=== PATIENT | female | born 1970 | race Caucasian/White ===

== ENCOUNTER 2016-07-14 21:35 | Observation (INO) ==
[2016-07-14] MEDS ORDERED: ADENOCARD ONE (21:46)
[2016-07-14] MEDS ORDERED: NS 1,000 ML ONE (21:46)
[2016-07-14] MEDS ORDERED: ADENOCARD IV ONE (21:49)
[2016-07-14] MEDS ORDERED: CARDIZEM IV ONE (21:54)
[2016-07-14] MEDS ORDERED: LABETALOL IV ONE ×2 (21:58→23:25)
[2016-07-14] MEDS ORDERED: CARDIZEM 100 MG/NS 100 ML IV SCH (22:00)
--- NOTE | 2016-07-14 22:12 | PROVIDER DOCUMENTATION ---
HPI-Cardiac General - General Chief Complaint: Palpitations Stated Complaint: SVT Time Seen by Provider: 07/14/16 21:57 Source: patient Allergies/Adverse Reactions: Patient Allergies Allergy/AdvReac Type Severity Reaction Status Date / Time morphine AdvReac Mild ITCHING Verified 07/09/16 01:41 codeine AdvReac ITCHING Verified 07/09/16 01:41 Home Medications: Home Medication List Medication Instructions Recorded Confirmed Last Taken Type Levothyroxine [Synthroid] 50 microgm PO DAILY 09/22/15 07/09/16 07/08/16 History 50 MCG Amphetamine Salts [Adderall] 20 mg PO BID 04/26/16 07/09/16 07/08/16 History Albuterol Sulfate [Proair 2 puff IH Q4H PRN 06/11/16 07/09/16 Unknown History Respiclick] Alprazolam [Xanax] 0.5 - 1 tab PO BID 06/11/16 07/09/16 07/08/16 History Fluoxetine HCl [Prozac] 20 mg PO DAILY 06/11/16 07/09/16 07/08/16 History 20 MG Hydroxyzine Pamoate 50 mg PO Q6H PRN 06/11/16 07/09/16 Unknown History Losartan/Hydrochlorothiazide 1 each PO DAILY 06/11/16 07/09/16 07/08/16 History [Losartan-Hctz 100-25 mg Tab] 1 EACH Albuterol Sulfate Inhaler 2 puff INH Q4H PRN PRN #1 inhaler 06/23/16 07/09/16 Unknown Rx [Ventolin Hfa] Clonidine [Catapres] 0.1 mg PO TID PRN #15 tablet 06/23/16 07/09/16 Unknown Rx Levofloxacin [Levaquin] 750 mg PO DAILY #7 tablet 07/06/16 07/09/16 07/08/16 Rx 750 MG - History of Present Illness-Cardiac Nature of Presenting Problem: 45 YOWF PRESENTS TO ED WITH C/O 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 PT STATES SHE HAS HAD THIS SYMPTOMS 3 OTHER TIMES. PT STATES SHE GOT SOB WHEN SHE WAS WALKING AFTER HER EPISODE. PT STATES SHE HAS HAD TO BE CONVERTED 3 OTHER TIMES. Quality of Pain: reports: none Severity in ED: moderate Onset/Duration: 1/2 hour ago Timing: still present Context/Activities at Onset: reports: light activity Modifying Factors: improves with: nothing History of arrythmia: reports: SVT Recent use of:: reports: no stimulants Associated Symptoms: reports: shortness of breath Similar Symptoms Previously?: No Recently Seen Here or By Another Healthcare Provider: No Review of Systems - Adult - REVIEW OF SYSTEMS - ADULT Constitutional: denies: chills, fever Eyes: reports: no symptoms reported Ears, Nose, Mouth & Throat: reports: no symptoms reported Cardiovascular: reports: palpitations. denies: chest pain, syncope Respiratory: reports: shortness of breath. denies: cough, wheezing Gastrointestinal: denies: abdominal pain, diarrhea, nausea, vomiting Genitourinary: reports: no symptoms reported Musculoskeletal: denies: back pain, neck pain Integumentary: reports: no symptoms reported Neurological: denies: dizziness/vertigo, headache/migraines, syncope Psychiatric: reports: no symptoms reported Endocrine: reports: no symptoms reported Hematologic/Lymphatic: reports: no symptoms reported Allergic/Immunologic: reports: no symptoms reported All Other Systems: Reviewed and Negative Past History - Adult - PAST MEDICAL HISTORY-ADULT Review of Records: reports: Nursing Assessment Review, Medications Reviewed Cardiovascular: reports: arrhythmia, HTN Respiratory: reports: asthma Gastrointestinal: reports: GERD, ulcer Genitourinary: reports: incontinence. denies: kidney disease, kidney stones, polycystic kidney disease Neurological: reports: headaches/migraines Psychiatric: reports: anxiety, depression, other Endocrine/Immune: reports: thyroid disorder - PRIOR SURGERIES/PROCEDURES Surgical/Procedure History: reports: hysterectomy, BTL, - IMMUNIZATION STATUS Childhood Immunizations: See Nurse Assessment Flu Vaccine: See Nurse Assessment - SOCIAL HISTORY Living Situation: family Physical Exam-General - CONSTITUTIONAL General Appearance: alert, moderate distress - EYES Eyes: PERRL/EOMI, pink conjunctivae - HEAD, EARS, NOSE, MOUTH & THROAT HENMT: normocephalic/atraumatic, moist mucous membranes - NECK Neck: non-tender, full range of motion, supple - RESPIRATORY Respiratory: chest non-tender, lungs clear, normal breath sounds - CARDIOVASCULAR Cardiovascular: normal peripheral pulses, tachycardia - GASTROINTESTINAL (ABDOMEN) Abdominal Exam: normal bowel sounds, non tender, soft - LYMPHATIC Lymphatic: no adenopathy - MUSCULOSKELETAL Back Exam: normal inspection, no CVA tenderness, no vertebral tenderness Extremity: normal range of motion, non-tender - SKIN Integumentary: normal color, normal turgor, warm/dry - NEUROLOGIC Neurologic: grossly normal - PSYCHIATRIC Psych/Mental Status: oriented x 3 Progress - PLAN OF CARE/RESULTS Progress/Plan/Lab Results: Laboratory Tests 07/14/16 07/14/16 07/14/16 21:35 21:35 21:35 WBC 12.61 H RBC 4.29 Hgb 10.5 L Hct 33.6 L MCV 78.3 L MCH 24.5 L MCHC 31.3 L RDW Std Deviation 18.7 H Plt Count 465 H MPV 11.5 H Immature Gran % (Auto) 0.1 Neut % (Auto) 56.2 Lymph % (Auto) 30.0 Hill % (Auto) 7.5 Eos % (Auto) 5.8 Baso % (Auto) 0.4 Immature Gran # (Auto) 0.01 Neut # (Auto) 7.10 H Lymph # (Auto) 3.78 H Hill # (Auto) 0.94 H Eos # (Auto) 0.73 H Baso # (Auto) 0.05 PT INR APTT (Factor Assay) Sodium 138 Potassium 2.9 L Chloride 101 Carbon Dioxide 23 L Anion Gap 14 BUN 13 Creatinine 0.8 Estimated GFR/1.73 m2 > 60 BUN/Creatinine Ratio 16 Glucose 105 H Calculated Osmolality 276 Calcium 9.8 Magnesium Total Bilirubin < 0.15 L AST 22 ALT 23 Alkaline Phosphatase 80 Creatine Kinase Troponin T < 0.010 Total Protein 7.8 Albumin 4.5 Globulin 3.0 Albumin/Globulin Ratio 1.0 TSH 07/14/16 07/14/16 07/14/16 21:35 21:35 21:35 WBC RBC Hgb Hct MCV MCH MCHC RDW Std Deviation Plt Count MPV Immature Gran % (Auto) Neut % (Auto) Lymph % (Auto) Hill % (Auto) Eos % (Auto) Baso % (Auto) Immature Gran # (Auto) Neut # (Auto) Lymph # (Auto) Hill # (Auto) Eos # (Auto) Baso # (Auto) PT 13.3 INR 0.98 APTT (Factor Assay) 33.2 Sodium Potassium Chloride Carbon Dioxide Anion Gap BUN Creatinine Estimated GFR/1.73 m2 BUN/Creatinine Ratio Glucose Calculated Osmolality Calcium Magnesium 2.1 Total Bilirubin AST ALT Alkaline Phosphatase Creatine Kinase 96 Troponin T Total Protein Albumin Globulin Albumin/Globulin Ratio TSH 3.83 Orders Category Date Time Status Admit - [facility] Routine AdmDCTranf 07/14/16 22:58 Ordered Activity - Strict Bedrest ORDERED Care 07/14/16 22:58 Active Cardiac Monitoring DIRECTED Care 07/14/16 21:50 Active Oxygen Therapy- ED Nursing DIRECTED Care 07/14/16 21:49 Active Saline Loc DIRECTED Care 07/14/16 21:49 Active Saline Loc NOW Care 07/14/16 21:49 Active Vital Signs Order Q 4-HR ASSESS Care 07/14/16 22:58 Active Heart Healthy Diet Diet 07/14/16 22:59 Active CBC WITH DIFF [HEME] Stat Lab 07/14/16 21:35 Completed CK PROFILE [SP CHEM] Stat Lab 07/14/16 21:35 Completed COMPREHENSIVE METABOLIC PANEL [CHEM] Stat Lab 07/14/16 21:35 Completed MAGNESIUM [CHEM] Stat Lab 07/14/16 21:35 Completed PRO B-NATRIURETIC PEPTIDE Stat Lab 07/14/16 21:[address] Received [address]IME WITH INR PL [COAG] Stat Lab 07/14/16 21:[address] [COAG] Stat Lab 07/14/16 21:35 Completed TROPONIN T Stat Lab 07/14/16 21:35 Completed TSH Stat Lab 07/14/16 21:35 Completed 0.9% Sodium Chloride Inj [Ns] 1,000 ml Med 07/14/16 21:46 Discontinued .ROUTE As Directed Adenosine [Adenocard] Med 07/14/16 21:46 Discontinued 18 mg .ROUTE .STK-MED ONE Adenosine [Adenocard] Med 07/14/16 21:49 Discontinued 6 mg IV NOW ONE Diltiazem 100 mg/Ns [Cardizem 100 mg/Ns] 100 ml Med 07/14/16 22:00 Discontinued IV 10 mg/hr Diltiazem [Cardizem] Med 07/14/16 21:54 Discontinued 10 mg IV NOW ONE Labetalol Med 07/14/16 21:58 Discontinued 10 mg IV NOW ONE Potassium Chloride E.r. [Klor-Con] Med 07/14/16 22:53 Discontinued 40 meq PO NOW ONE Oxygen Device Routine Oth 07/14/16 22:58 Active EKG [EKG] Stat Ther 07/14/16 21:50 Ordered Vital Signs - 24 hr 07/14/16 07/14/16 07/14/16 21:41 21:53 22:10 Temperature 98 F Pulse Rate 204 H 106 H 81 Respiratory 28 H 19 20 Rate Blood Pressure 159/121 203/131 175/112 O2 Sat by Pulse 97 100 Oximetry 07/14/16 22:57 Temperature Pulse Rate 85 Respiratory Rate Blood Pressure 161/104 O2 Sat by Pulse 100 Oximetry - EKG 1 Time of EKG reading by physician:: 21:45 EKG Read and Signed by:: Antony Fiore EKG Interpretation (*Must complete 3 of following elements*): Abnormal Rate: 207 Rhythm: WIDE QRS TACHYCARDIA [place]: normal Comments: NONSPECIFIC INTRAVENTRICULAR BLOCK 2 Time of EKG reading by physician:: 21:46 EKG Read and Signed by:: Antony Fiore EKG Interpretation (*Must complete 3 of following elements*): Abnormal Rate: 89 Rhythm: SINUS RHYTHM W/MARKED SINUS ARRHYTHMIA [place]: normal QRS: normal Comments: POSSIBLE LT ATRIAL ENLARGEMENT. NONSPECIFIC ST AND T WAVE ABNORMALITY 3 Time of EKG reading by physician:: 21:47 EKG Read and Signed by:: Antony Fiore Rate: 116 Rhythm: SINUS TACHYCARDIA Comments: MARKED ST ABNORMALITY Departure - Departure Time of Disposition Order: 22:58 DIAGNOSIS: Paroxysmal SVT (supraventricular tachycardia), Uncontrolled hypertension Disposition: ADMITTED INPATIENT 09 Certified Medical Emergency: Emergent Condition: Stable Additional Instructions: ED Follow Up Instructions: You have been treated by a care provider in the Emergency Department. These instructions are being provided to you so you can have an understanding of how to care for yourself upon discharge. Upon discharge from the Emergency Department, you are responsible for making arrangements for follow-up care by a physician of your choice. Take all prescribed medications as directed. Return to the Emergency Department immediately for any new or worsening symptoms. You may call the Physician Referral phone number at [phone] to obtain a list of Physicians who are taking new patients. Referrals: Sheng Shi MD [Primary Care Provider] - Attestation - Scribe Verification/Attestation Scribe:: Kermit Villarreal Acting as Scribe for:: Antony Fiore Scribestella documention review:: This chart was documented by a scribe and accurately reflects the service the provider performed and the decisions made by the provider.
[2016-07-14 22:24] LABS: MANUAL DIFF NEEDED? NO
[2016-07-14 22:28] LABS: BASO% 0.4 % (0.0-0.8); EOS# 0.73 X1000 (0.0-0.7); EOS% 5.8 % (0.0-10.0); HEMATOCRIT 33.6 % (37.0-47.0); HEMOGLOBIN 10.5 g/dL (12.0-16.0); IMM GRAN# 0.01 X1000 (0.0-0.04); IMM GRAN% 0.1 % (0.0-0.5); LYMPH# 3.78 X1000 (1.2-3.4); MCH 24.5 PG (27-31); MCHC 31.3 g/dL (33-37); MCV 78.3 FL (81-99); MONO# 0.94 X1000 (0.11-0.59); MONO% 7.5 % (1.7-9.3); MPV 11.5 FL (7.4-10.4); NEUT% 56.2 % (42.2-75.2); PLT 465 X1000 (130-400); RBC 4.29 XMIL (4.2-5.4)
[2016-07-14 22:42] LABS: INR 0.98 (0.86-1.15); PROTIME 13.3 Seconds (12.1-15.5)
[2016-07-14 22:43] LABS: PTT PL 33.2 Seconds (22.6-43.9)
[2016-07-14 22:45] LABS: MAGNESIUM 2.1 mg/dL (1.5-2.7)
[2016-07-14 22:50] LABS: AGAP 14; ALBUMIN 4.5 g/dL (3.5-5.0); ALKALINE PHOSPHATASE 80 U/L (32-104); BUN 13 mg/dL (8-22); CALCIUM 9.8 mg/dL (8.8-10.2); CHLORIDE 101 mmol/L (98-107); COSMO 276; GOT 22 U/L (10-30); GPT 23 U/L (10-36); POTASSIUM 2.9 mmol/L (3.5-5.1); SODIUM 138 mmol/L (136-145); TCO2 23 mmol/L (25-35); TOTAL BILIRUBIN < 0.15 mg/dL (0.20-1.00); TOTAL PROTEIN 7.8 g/dL (6.3-8.3)
[2016-07-14] MEDS ORDERED: KLOR-CON PO ONE (22:53)
[2016-07-14] MEDS ORDERED: LABETALOL ONE (23:26)
[2016-07-14] MEDS ORDERED: CATAPRES PO PRN (23:52)
[2016-07-15] MEDS ORDERED: HYDROXYZINE PO PRN (00:36)
[2016-07-15] MEDS ORDERED: MILK OF MAGNESIA PO ONE (00:45)
[2016-07-15] MEDS: XANAX PO PRN ×2 (00:57→21:45)
--- NOTE | 2016-07-15 05:55 | EKG Report ---
Test Performed on : 07/14/2016 9:46:04 PM Test Reason : SDA Blood Pressure : / mmHG Vent. Rate : 116 BPM Atrial Rate : 116 BPM P-R Int : 156 ms QRS Dur : 088 ms QT Int : 316 ms P-R-T Axes : 063 064 041 degrees QTc Int : 439 ms Sinus tachycardia. Marked ST abnormality, possible inferior subendocardial injury Abnormal ECG When compared with ECG of 14-JUL-2016 21:45, (Unconfirmed) No significant change was found Unconfirmed Result
[2016-07-15] MEDS ORDERED: ADDERALL PO SCH (07:00)
[2016-07-15 07:12] LABS: HEMATOCRIT 31.4 % (37.0-47.0); HEMOGLOBIN 9.7 g/dL (12.0-16.0); MCH 24.1 PG (27-31); MCHC 30.9 g/dL (33-37); MCV 78.1 FL (81-99); MPV 10.9 FL (7.4-10.4); RBC 4.02 XMIL (4.2-5.4)
[2016-07-15] MEDS ORDERED: CATAPRES PO PRN ×2 (07:35→07:36)
[2016-07-15 07:38] LABS: AGAP 11; ALBUMIN 3.9 g/dL (3.5-5.0); ALKALINE PHOSPHATASE 67 U/L (32-104); BUN 9 mg/dL (8-22); CALCIUM 8.9 mg/dL (8.8-10.2); CHLORIDE 104 mmol/L (98-107); COSMO 276; GOT 15 U/L (10-30); GPT 18 U/L (10-36); MAGNESIUM 2.1 mg/dL (1.5-2.7); SODIUM 139 mmol/L (136-145); TCO2 23 mmol/L (25-35); TOTAL PROTEIN 6.7 g/dL (6.3-8.3)
[2016-07-15] MEDS ORDERED: KLOR-CON PO ONE (08:29)
--- NOTE | 2016-07-15 08:49 | HISTORY AND PHYSICAL ---
SUBJECTIVE: Tachycardia. HISTORY PRESENT ILLNESS: Patient is a 45-year-old female, who notes that she has been having issues with palpitations and tachycardia off and on for the last several months. It usually resolves very quickly; this time it did not. Therefore, she came to the ER. Notes that she was at work. She had not been overly stressed, anxious, had not been doing any physical activity. States her heart started racing and did not slow down. Therefore, she came to the emergency department. ALLERGIES: Morphine causing itching. Codeine causing itching. MEDICATIONS: Synthroid 50 mcg daily, albuterol although notes she has not taken any albuterol recently, Xanax 0.5 mg b.i.d., Prozac 20 mg once a day, hydroxyzine 50 q. 6 hours p.r.n., losartan 100/25, Catapres 0.5 t.i.d. REVIEW OF SYSTEMS: As noted above. Positive palpitations. Denies any current chest pain. Denies any fevers, chills, nausea, vomiting, dysuria, frequency. Denies hesitancy, constipation, melena. Denies hematochezia. Denies any skin rashes, weight loss or weight gain. PAST MEDICAL HISTORY: Chronic reflux, ADD, chronic migraines, depression, hypothyroidism, history of hysterectomy,BTL, history of hypertension and asthma. FAMILY HISTORY: Noncontributory. SOCIAL HISTORY: Patient lives at home. She denies drinking alcohol. She is a former smoker, but does not smoke. Denies any other illicit substances. OBJECTIVE: Vital Signs Reviewed: Temperature 97.0 degrees, pulse 67, respiratory rate 18, BP 180/91. General: Patient is well developed, well nourished. She is currently in no respiratory distress. She is awake, alert, oriented. Neck: Supple. CV: Regular rate. Chest: Relatively clear. Abdomen: Soft. Extremities: Moves all extremities. Neurologic: No changes. LABS: CBC and CMP reviewed. Potassium at 3.0. TSH 3.83. ASSESSMENT: 1. Supraventricular tachycardia, appears resolved after 1 dose of intravenous Cardizem in the emergency room. 2. Hypertension. Blood pressure is elevated, although she has not had her medications yet this morning. 3. Hypothyroidism. 4. Chronic depression. 5. Hypokalemia. PLAN: We will continue patient's home medications. We will add Toprol for her SVT. Will replace her potassium and hopefully home later this afternoon. She will have an echo before discharge and will follow up in 1 week.
[2016-07-15] MEDS: TOPROL XL PO SCH (09:46)
[2016-07-15] MEDS: COZAAR PO SCH (09:46)
[2016-07-15] MEDS: PROZAC PO SCH (09:46)
[2016-07-15] MEDS: SYNTHROID PO SCH (09:46)
[2016-07-15] MEDS: HYDROCHLOROTHIAZIDE PO SCH (09:47)
--- NOTE | 2016-07-15 17:06 | ECHO REPORT ---
ORDER DATE: 07/15/2016 INTERPRETING PHYSICIAN: Dr. Smith CLINICAL INDICATIONS: [id number]-old female, supraventricular tachycardia , chest pain. M-MODE MEASUREMENTS: Right ventricle: 1.8 cm. Left ventricle end diastole: 4.1 cm. Left ventricle end systole: 2.7 cm. Posterior wall: 1.5 cm. Interventricular septum: 1.5 cm. Left atrium: 4.3 cm. Aortic root: 3.3 cm. SUMMARY OF 2-DIMENSIONAL IMAGING: Left ventricular function is normal. Ejection fraction appears to be in the range of 55 to 60%. LV Chamber is mildly enlarged. There is moderate degree of concentric LVH. Right ventricle is normal. Left atrium appears to be mild to moderately enlarged. Mitral valve shows mild degree of regurgitation. Pulse wave Doppler of mitral inflow is normal. Tissue Doppler of septal and lateral mitral anulus averages 9 cm. Pulse wave Doppler of pulmonary venous flow is normal. There is no diastolic dysfunction. Tricuspid valve shows mild degree of regurgitation. Inferior vena cava is at the upper limits of normal. Pulmonary pressure estimated to be somewhere in the range of 48 to 53 mmHg. Pulmonic valve looks normal. Color flow mapping unremarkable. Aortic valve looks normal. Color flow mapping unremarkable. There is no pericardial effusion, masses, nor thrombus. Clinical correlation is recommended. [facility]
[2016-07-16] MEDS: SYNTHROID PO SCH (06:10)
[2016-07-16] MEDS ORDERED: KLOR-CON PO SCH (09:00)
[2016-07-16] MEDS: TOPROL XL PO SCH (09:30)
[2016-07-16] MEDS: HYDROCHLOROTHIAZIDE PO SCH (09:30)
[2016-07-16] MEDS: COZAAR PO SCH (09:30)
[2016-07-16] MEDS: PROZAC PO SCH (09:30)
[2016-07-16 11:41] VITALS: BP 173/91
--- NOTE | 2016-07-16 14:05 | DISCHARGE SUMMARY ---
ADMISSION DATE: 07/14/2016 DISCHARGE DATE: 07/16/2016 DISCHARGE DIAGNOSES: 1. Supraventricular tachycardia resolved. 2. Hypertension stable. 3. Hypothyroidism. 4. Chronic depression. 5. Adult attention-deficit. 6. Hypokalemia. CONSULTATIONS: None. PROCEDURES: None. BRIEF HOSPITAL COURSE: The patient is a 45-year-old female, who presented to the emergency department as noted on the HPI and treated in the usual fashion. She had an elevated heart rate in the 150s. It quickly resolved down to the 60s. Likely this was a combination of stress, medications, etc. She notes that all of her symptoms have resolved. She is feeling better. She is asking to go home. Of note, her blood pressure was elevated in the hospital right before discharge but this was secondary to her having missed her medications the day before and had not yet received them in the hospital. However she is awake and alert, she is oriented, she is in no distress. She will follow up in the office in 1-2 weeks. 35 minutes was spent in discharge planning.
== END 2016-07-16 13:15 | disposition home or self-care (01) ==
LOC: P.ED 21:35 → P.MEDSURG 21:36
PROVIDERS: ADMIT Family Medicine; ATTEND Family Medicine
DX: I47.1 Supraventricular tachycardia (principal); R00.2 Palpitations; R06.02 Shortness of breath; I10 Essential (primary) hypertension; J45.909 Unspecified asthma, uncomplicated; K21.9 Gastro-esophageal reflux disease without esophagitis; Z87.11 Personal history of peptic ulcer disease; F41.9 Anxiety disorder, unspecified; F32.9 Major depressive disorder, single episode, unspecified; Z79.899 Other long term (current) drug therapy; E03.9 Hypothyroidism, unspecified; E87.6 Hypokalemia; F98.8 Other specified behavioral and emotional disorders with onset usually occurring in childhood and adolescence
CPT/HCPCS: 80053; 82550; 83735; 83880; 84443; 84484; 85025; 85027; 85610; 85730; 93005; 93306; 94761; 96374; 96375; 96376; J0153; J7030

== ENCOUNTER 2016-08-03 16:43 | Emergency (ER) ==
[2016-08-03 17:39] LABS: MANUAL DIFF NEEDED? NO
[2016-08-03 17:43] LABS: BASO% 0.4 % (0.0-0.8); EOS# 0.39 X1000 (0.0-0.7); EOS% 5.4 % (0.0-10.0); HEMOGLOBIN 10.1 g/dL (12.0-16.0); LYMPH# 1.67 X1000 (1.2-3.4); MCH 24.3 PG (27-31); MCHC 31.6 g/dL (33-37); MCV 76.9 FL (81-99); MONO% 6.9 % (1.7-9.3); MPV 11.1 FL (7.4-10.4); NEUT% 64.3 % (42.2-75.2); PLT 367 X1000 (130-400); RBC 4.16 XMIL (4.2-5.4)
--- NOTE | 2016-08-03 17:53 | ED EKG INTERP ---
EKG Interpretation - EKG Time of EKG reading by physician:: 17:13 EKG Read and Signed by:: Quirino Henderson EKG Interpretation (*Must complete 3 of following elements*): Abnormal Rate: 75 Rhythm: normal sinus rhythm Comments: nonspecific ST and T wave abnormality; prolonged QT Attestation - Scribe Verification/Attestation Scribe:: Argelia Tran Acting as Scribe for:: Quirino Henderson Scribe documention review:: This chart was documented by a scribe and accurately reflects the service the provider performed and the decisions made by the provider.
[2016-08-03 17:58] LABS: INR 1.04; PROTIME 10.6 Seconds (9.2-11.7); PTT 25.1 Seconds (22.0-36.0)
[2016-08-03 18:00] LABS: AGAP 13; ALBUMIN 3.9 g/dL (3.5-5.0); ALKALINE PHOSPHATASE 71 U/L (32-104); BUN 13 mg/dL (8-22); CALCIUM 9.3 mg/dL (8.8-10.2); CHLORIDE 105 mmol/L (98-107); CK PROFILE 59 U/L (24-173); COSMO 279; GOT 19 U/L (10-30); GPT 21 U/L (10-36); POTASSIUM 3.7 mmol/L (3.5-5.1); SODIUM 140 mmol/L (136-145); TCO2 22 mmol/L (25-35); TOTAL BILIRUBIN 0.24 mg/dL (0.20-1.00); TOTAL PROTEIN 7.4 g/dL (6.3-8.3)
--- NOTE | 2016-08-03 18:37 | PROVIDER DOCUMENTATION ---
HPI-General Adult - General Chief Complaint: Palpitations Stated Complaint: PALPITATIONS Time Seen by Provider: 08/03/16 18:33 Source: patient Allergies/Adverse Reactions: Patient Allergies Allergy/AdvReac Type Severity Reaction Status Date / Time morphine AdvReac Mild ITCHING Verified 07/09/16 01:41 codeine AdvReac ITCHING Verified 07/09/16 01:41 Home Medications: Home Medication List Medication Instructions Recorded Confirmed Last Taken Type Levothyroxine [Synthroid] 50 microgm PO DAILY 09/22/15 07/15/16 07/08/16 History 50 MCG Albuterol Sulfate [Proair 2 puff IH Q4H PRN 06/11/16 07/15/16 Unknown History Respiclick] Alprazolam [Xanax] 1 tab PO QHS PRN 06/11/16 07/15/16 07/08/16 History Fluoxetine HCl [Prozac] 20 mg PO DAILY 06/11/16 07/15/16 07/08/16 History 20 MG Hydroxyzine Pamoate 50 mg PO Q6H PRN 06/11/16 07/15/16 Unknown History Losartan/Hydrochlorothiazide 1 each PO DAILY 06/11/16 07/15/16 07/08/16 History [Losartan-Hctz 100-25 mg Tab] 1 EACH Albuterol Sulfate Inhaler 2 puff INH Q4H PRN PRN #1 inhaler 06/23/16 07/15/16 Unknown Rx [Ventolin Hfa] Clonidine [Catapres] 0.1 mg PO TID PRN #15 tablet 06/23/16 07/15/16 Unknown Rx Metoprolol Succinate E.r. [Toprol 25 mg PO DAILY #30 tablet 07/15/16 Unknown Rx Xl] Potassium Chloride E.r. [Klor-Con] 20 meq PO DAILY #30 tablet 07/15/16 Unknown Rx Clonidine [Catapres] 0.1 mg PO Q4H PRN PRN #0 tablet 07/16/16 Unknown Rx Azithromycin [Zithromax Z-Harrison] 250 mg PO DIRECTED #1 pkg 08/03/16 Unknown Rx - History of Present Illness -Gen Adult Nature of Presenting Problems: Pt. is 45 yof that presents with c/o a feeling of fluttering in her chest and states she has a feeling of doom. Pt. denies any N/V or SOB, or radiation of symptoms to any arm, neck or other location. Pt. reports symptoms began on Monday and she didn't come to the ED because she thought it would go away. Pt. reports she had a normal heart cath in [place] [address] Chance. Location of Pain/Injury: reports: chest (Fluttering but no pain). denies: head , face, mouth, neck, upper extremity, hand(s), abdomen, back, pelvis, genitalia , lower extremity, feet, upper body, lower body, generalized, other Pain Radiation: reports: no radiation Quality of Pain: reports: other (Fluttering). denies: aching, burning, cramping , dull, fullness, indigestion, pressure, sharp, stabbing, tearing, throbbing, tightness Severity: reports: mild. denies: moderate, severe Onset/Duration: reports: abrupt, 2 days ago Timing: reports: still present. denies: improving, gone now, resolved prior to arrival, intermittent, constant, changing over time, getting worse Context/Activities at Onset: reports: none. denies: recent emotional stress, recent physical stress, recent trauma history, possible bad food, cold exposure , out of country travel Modifying Factors: improves with: nothing Associated Symptoms: reports: anxiety, other (Fluttering sensation). denies: arm pain, back/neck pain, chest pain, constipation, cough, diaphoresis, diarrhea , dizziness, EENT symptoms, fatigue, fever/chills, genitourinary problems, headaches, heartburn, joint pain, loss of appetite, malaise, muscle aches, sinus congestion/drainage, nausea, rash, seizure, shortness of breath, sensory/ motor loss, pain with inspiration, swelling/mass in abdomen, syncope, vomiting, weakness, trouble walking Similar Symptoms Previously?: Yes Recently seen or treated by another doctor?: No Review of Systems - Adult - REVIEW OF SYSTEMS - ADULT Constitutional: reports: see HPI. denies: chills, fever, fatique Eyes: reports: see HPI. denies: discharge, blurred vision, double vision Ears, Nose, Mouth & Throat: reports: see HPI. denies: ear discharge, ear pain, hearing loss, sinus problem, nose pain, loose teeth, mouth/dental pain, throat pain, throat swelling Cardiovascular: reports: see HPI, palpitations. denies: edema, irregular heart rate, orthopnea, syncope Respiratory: reports: see HPI. denies: chronic cough, cough, dyspnea on exertion, pleurisy, shortness of breath, wheezing Gastrointestinal: reports: see HPI. denies: abdominal pain, hematemesis, diarrhea, nausea, vomiting Genitourinary: reports: see HPI. denies: dysuria, discharge, hematuria, hesitency, urgency Musculoskeletal: reports: see HPI. denies: bone pain, back pain, joint pain, muscle aches, neck pain Integumentary: reports: see HPI. denies: hives, itching, rash, skin thickening Neurological: reports: see HPI. denies: ataxia, headache/migraines, numbness, paresthesia, seizure, tremors Psychiatric: reports: see HPI, anxiety. denies: depression, emotional problems , insomnia, panic attacks, suicidal thoughts Past History - Adult - PAST MEDICAL HISTORY-ADULT Review of Records: reports: Old Records Reviewed, Nursing Assessment Review, Medications Reviewed, Social history reviewed & non-contributory. Cardiovascular: reports: arrhythmia, HTN Respiratory: reports: asthma Gastrointestinal: reports: GERD, ulcer Genitourinary: reports: incontinence. denies: kidney disease, kidney stones, polycystic kidney disease Neurological: reports: headaches/migraines Psychiatric: reports: anxiety, depression, other Endocrine/Immune: reports: thyroid disorder - PRIOR SURGERIES/PROCEDURES Surgical/Procedure History: reports: hysterectomy, BTL, - IMMUNIZATION STATUS Childhood Immunizations: See Nurse Assessment Flu Vaccine: See Nurse Assessment - SOCIAL HISTORY Smoking: denies Physical Exam-General - PHYSICAL EXAM-ADULT Initial Vital Signs Reviewed: Yes - CONSTITUTIONAL General Appearance: alert, no apparent distress, obese. negative: thin, anxious , lethargic, slow to respond, obtunded, combative - EYES Eyes: PERRL/EOMI, pink conjunctivae. negative: conjuctival exudate, scleral icterus, subconjunctival hemorrhage - HEAD, EARS, NOSE, MOUTH & THROAT HENMT: normocephalic/atraumatic, moist mucous membranes. negative: angioedema, frontal tenderness, maxillary tenderness - NECK Neck: non-tender, full range of motion, supple, normal inspection. negative: lymphadenopathy, trachial deviation, thyromegaly - RESPIRATORY Respiratory: lungs clear, normal breath sounds. negative: crackles, rales, rhonchi, stridor, wheezing - CARDIOVASCULAR Cardiovascular: normal peripheral pulses, regular rate, rhythm, no edema, no JVD , no murmur. negative: extra beats, friction rub, irregularly irregular - CHEST (BREASTS) Chest/Breast: deferred - GASTROINTESTINAL (ABDOMEN) Abdominal Exam: normal bowel sounds, non tender, soft. negative: distended, guarding, rigid, rebound, tenderness, hernia, mass - GENITOURINARY Female Genitalia/Pelvic Exam: deferred Rectal Exam: deferred Hemoccult Exam: deferred - LYMPHATIC Lymphatic: no adenopathy. negative: axilla node tender, cervical node tenderness - MUSCULOSKELETAL Back Exam: normal inspection, no CVA tenderness, no vertebral tenderness. negative: ecchymosis, swelling, vertebral tenderness Extremity: normal range of motion, non-tender, normal gait, normal inspection. negative: deformity, erythema, inflammation, swelling, tenderness Peripheral Pulses: radial (R): 2+, radial (L): 2+ - SKIN Integumentary: normal color, normal turgor, warm/dry. negative: cyanosis, diaphoresis, ecchymosis, erythema, jaundice, mottled, pallor, petechiae, purpura , rash, swelling, tenderness - NEUROLOGIC Neurologic: grossly normal, no motor/sensory deficits. negative: aphasia, facial droop, focal weakness, motor weakness, sensory deficit - PSYCHIATRIC Psych/Mental Status: normal mood/affect, normal thought content, normal thought process, oriented x 3, anxious. negative: paranoid, tearful Progress - PLAN OF CARE/RESULTS Progress/Plan/Lab Results: Discussed results and plan of care with patient. Patient agrees with plan and verbalizes understanding. Vital Signs Temp Pulse Resp BP Pulse Ox 08/03/16 16:58 97.6 F 94 H 18 223/117 99 morphine Adverse Reaction (Mild, Verified 07/09/16 01:41) ITCHING codeine Adverse Reaction (Verified 07/09/16 01:41) ITCHING Levothyroxine [Synthroid] 50 microgm PO DAILY 09/22/15 Albuterol Sulfate [Proair Respiclick] 2 puff IH Q4H PRN 06/11/16 Alprazolam [Xanax] 1 tab PO QHS PRN 06/11/16 Fluoxetine HCl [Prozac] 20 mg PO DAILY 06/11/16 Hydroxyzine Pamoate 50 mg PO Q6H PRN 06/11/16 Losartan/Hydrochlorothiazide [Losartan-Hctz 100-25 mg Tab] 1 each PO DAILY 06/11 Albuterol Sulfate Inhaler [Ventolin Hfa] 2 puff INH Q4H PRN PRN #1 inhaler 06/23 Clonidine [Catapres] 0.1 mg PO TID PRN #15 tablet 06/23/16 Metoprolol Succinate E.r. [Toprol Xl] 25 mg PO DAILY #30 tablet 07/15/16 Potassium Chloride E.r. [Klor-Con] 20 meq PO DAILY #30 tablet 07/15/16 Clonidine [Catapres] 0.1 mg PO Q4H PRN PRN #0 tablet 07/16/16 Laboratory 08/03/16 08/03/16 08/03/16 20:19 20:19 17:21 WBC RBC Hgb Hct MCV MCH MCHC RDW Std Deviation Plt Count MPV Immature Gran % (Auto) Neut % (Auto) Lymph % (Auto) [place] % (Auto) Eos % (Auto) Baso % (Auto) Immature Gran # (Auto) Neut # (Auto) Lymph # (Auto) [place] # (Auto) Eos # (Auto) Baso # (Auto) PT INR PTT (Actin FS) D-Dimer Sodium Potassium Chloride Carbon Dioxide Anion Gap BUN Creatinine Estimated GFR/1.73 m2 BUN/Creatinine Ratio Glucose Calculated Osmolality Calcium Magnesium Total Bilirubin AST ALT Alkaline Phosphatase Creatine Kinase 57 Troponin T < 0.010 < 0.010 Jut-S-Jdnpgsjmwws Pept Total Protein Albumin Globulin Albumin/Globulin Ratio 08/03/16 08/03/16 08/03/16 17:21 17:21 17:21 WBC RBC Hgb Hct MCV MCH MCHC RDW Std Deviation Plt Count MPV Immature Gran % (Auto) Neut % (Auto) Lymph % (Auto) [place] % (Auto) Eos % (Auto) Baso % (Auto) Immature Gran # (Auto) Neut # (Auto) Lymph # (Auto) [place] # (Auto) Eos # (Auto) Baso # (Auto) PT 10.6 INR 1.04 PTT (Actin FS) 25.1 D-Dimer 0.11 Sodium Potassium Chloride Carbon Dioxide Anion Gap BUN Creatinine Estimated GFR/1.73 m2 BUN/Creatinine Ratio Glucose Calculated Osmolality Calcium Magnesium Total Bilirubin AST ALT Alkaline Phosphatase Creatine Kinase Troponin T Zru-A-Vpqzhchsljc Pept 129 Total Protein Albumin Globulin Albumin/Globulin Ratio 08/03/16 08/03/16 17:21 17:21 WBC 7.26 RBC 4.16 L Hgb 10.1 L Hct 32.0 L MCV 76.9 L MCH 24.3 L MCHC 31.6 L RDW Std Deviation 17.1 H Plt Count 367 MPV 11.1 H Immature Gran % (Auto) 0.0 Neut % (Auto) 64.3 Lymph % (Auto) 23.0 [place] % (Auto) 6.9 Eos % (Auto) 5.4 Baso % (Auto) 0.4 Immature Gran # (Auto) 0.00 Neut # (Auto) 4.67 Lymph # (Auto) 1.67 [place] # (Auto) 0.50 Eos # (Auto) 0.39 Baso # (Auto) 0.03 PT INR PTT (Actin FS) D-Dimer Sodium 140 Potassium 3.7 Chloride 105 Carbon Dioxide 22 L Anion Gap 13 BUN 13 Creatinine 0.8 Estimated GFR/1.73 m2 > 60 BUN/Creatinine Ratio 16 Glucose 98 Calculated Osmolality 279 Calcium 9.3 Magnesium 2.0 Total Bilirubin 0.24 AST 19 ALT 21 Alkaline Phosphatase 71 Creatine Kinase 59 Troponin T Rdb-F-Uqufsmkvkvs Pept Total Protein 7.4 Albumin 3.9 Globulin 3.5 Albumin/Globulin Ratio 1.1 Orders Category Date Time Status Cardiac Monitoring DIRECTED Care 08/03/16 17:24 Active Saline Loc NOW Care 08/03/16 17:24 Active CHEST-2 VIEWS [RAD] Stat Exams 08/03/16 17:24 Taken CBC WITH ELECTRONIC DIFF [HEME] Stat Lab 08/03/16 17:21 Completed CK PROFILE [SP CHEM] Stat Lab 08/03/16 17:21 Completed CK PROFILE [SP CHEM] Stat Lab 08/03/16 20:19 Completed COMPREHENSIVE METABOLIC PANEL [CHEM] Stat Lab 08/03/16 17:21 Completed D-DIMER [CHEM] Stat Lab 08/03/16 17:21 Completed MAGNESIUM [CHEM] Stat Lab 08/03/16 17:21 Completed PRO B-NATRIURETIC PEPTIDE Stat Lab 08/03/16 17:21 Completed PROTIME WITH INR [COAG] Stat Lab 08/03/16 17:21 Completed PTT [COAG] Stat Lab 08/03/16 17:21 Completed TROPONIN T Stat Lab 08/03/16 17:21 Completed TROPONIN T Stat Lab 08/03/16 20:19 Completed Azithromycin [Zithromax] Med 08/03/16 18:53 Discontinued 500 mg PO NOW ONE Clonidine [Catapres] Med 08/03/16 18:53 Discontinued 0.1 mg PO NOW ONE Lorazepam [Ativan] Med 08/03/16 20:30 Discontinued 2 mg IM NOW ONE EKG [EKG] Stat Ther 08/03/16 17:02 Ordered EKG [EKG] Stat Ther 08/03/16 19:29 Ordered Laboratory Tests 08/03/16 08/03/16 08/03/16 17:21 17:21 17:21 WBC 7.26 RBC 4.16 L Hgb 10.1 L Hct 32.0 L MCV 76.9 L MCH 24.3 L MCHC 31.6 L RDW Std Deviation 17.1 H Plt Count 367 MPV 11.1 H Immature Gran % (Auto) 0.0 Neut % (Auto) 64.3 Lymph % (Auto) 23.0 [place] % (Auto) 6.9 Eos % (Auto) 5.4 Baso % (Auto) 0.4 Immature Gran # (Auto) 0.00 Neut # (Auto) 4.67 Lymph # (Auto) 1.67 [place] # (Auto) 0.50 Eos # (Auto) 0.39 Baso # (Auto) 0.03 PT INR PTT (Actin FS) D-Dimer 0.11 Sodium 140 Potassium 3.7 Chloride 105 Carbon Dioxide 22 L Anion Gap 13 BUN 13 Creatinine 0.8 Estimated GFR/1.73 m2 > 60 BUN/Creatinine Ratio 16 Glucose 98 Calculated Osmolality 279 Calcium 9.3 Magnesium 2.0 Total Bilirubin 0.24 AST 19 ALT 21 Alkaline Phosphatase 71 Creatine Kinase 59 Troponin T Tkj-N-Hzpgytaodgc Pept Total Protein 7.4 Albumin 3.9 Globulin 3.5 Albumin/Globulin Ratio 1.1 08/03/16 08/03/16 08/03/16 17:21 17:21 17:21 WBC RBC Hgb Hct MCV MCH MCHC RDW Std Deviation Plt Count MPV Immature Gran % (Auto) Neut % (Auto) Lymph % (Auto) [place] % (Auto) Eos % (Auto) Baso % (Auto) Immature Gran # (Auto) Neut # (Auto) Lymph # (Auto) [place] # (Auto) Eos # (Auto) Baso # (Auto) PT 10.6 INR 1.04 PTT (Actin FS) 25.1 D-Dimer Sodium Potassium Chloride Carbon Dioxide Anion Gap BUN Creatinine Estimated GFR/1.73 m2 BUN/Creatinine Ratio Glucose Calculated Osmolality Calcium Magnesium Total Bilirubin AST ALT Alkaline Phosphatase Creatine Kinase Troponin T < 0.010 Odx-N-Ypyiyaqwviw Pept 129 Total Protein Albumin Globulin Albumin/Globulin Ratio 08/03/16 08/03/16 20:19 20:19 WBC RBC Hgb Hct MCV MCH MCHC RDW Std Deviation Plt Count MPV Immature Gran % (Auto) Neut % (Auto) Lymph % (Auto) [place] % (Auto) Eos % (Auto) Baso % (Auto) Immature Gran # (Auto) Neut # (Auto) Lymph # (Auto) [place] # (Auto) Eos # (Auto) Baso # (Auto) PT INR PTT (Actin FS) D-Dimer Sodium Potassium Chloride Carbon Dioxide Anion Gap BUN Creatinine Estimated GFR/1.73 m2 BUN/Creatinine Ratio Glucose Calculated Osmolality Calcium Magnesium Total Bilirubin AST ALT Alkaline Phosphatase Creatine Kinase 57 Troponin T < 0.010 Coq-F-Gdgoxvqzkkw Pept Total Protein Albumin Globulin Albumin/Globulin Ratio - XRAY 1 XRAY Study: Chest XRAY Interpretation: RLL infiltrate (Edgar) Departure - Departure Time of Disposition Order: 21:05 DIAGNOSIS: Anxiety, Palpitations Pneumonia Qualifiers: Pneumonia type: due to unspecified organism Laterality: right Lung location: lower lobe of lung Qualified Code(s): J18.1 - Lobar pneumonia, unspecified organism Disposition: HOME 01 Certified Medical Emergency: Emergent Condition: Stable Additional Instructions: Follow up with primary care physician Take medications as directed Return to ED for any concerns or worsening of symptoms ED Follow Up Instructions: You have been treated by a care provider in the Emergency Department. These instructions are being provided to you so you can have an understanding of how to care for yourself upon discharge. Upon discharge from the Emergency Department, you are responsible for making arrangements for follow-up care by a physician of your choice. Take all prescribed medications as directed. Return to the Emergency Department immediately for any new or worsening symptoms. You may call the Physician Referral phone number at [phone] to obtain a list of Physicians who are taking new patients. Prescriptions: Azithromycin [Zithromax Z-Harrison] 250 mg PO DIRECTED #1 pkg Referrals: Sheng Shi MD [Primary Care Provider] - Attestation - Physician/ ILDA Attestation Patient care was provided by Advanced Practice Provider:: Yes Advanced Practice Provider:: Morena Pink Advanced Practice Provider documentation review:: The Mid-level provider documentation, treatment plan and medical decision making was reviewed by the physician who agrees with all treatment and medical decision making by the MLP.
[2016-08-03] MEDS ORDERED: ZITHROMAX PO ONE (18:53)
[2016-08-03] MEDS ORDERED: CATAPRES PO ONE (18:53)
[2016-08-03] MEDS ORDERED: ATIVAN IM ONE (20:30)
[2016-08-03] MEDS ORDERED: APRESOLINE IV ONE (21:10)
--- NOTE | 2016-08-03 21:22 | ED EKG INTERP ---
EKG Interpretation - EKG Time of EKG reading by physician:: 20:12 EKG Read and Signed by:: Lior Hernández EKG Interpretation (*Must complete 3 of following elements*): Abnormal Rate: 58 Rhythm: Sinus Omari Comments: nonspecific T wave abnormality Attestation - Scribe Verification/Attestation Scribe:: Harsha Navarro Acting as Scribe for:: Lior Hernández Scribe documention review:: This chart was documented by a scribe and accurately reflects the service the provider performed and the decisions made by the provider.
[2016-08-03 22:14] VITALS: BP 151/102
--- NOTE | 2016-08-04 08:07 | Diag Imaging Result Document ---
PROCEDURE NAME: CHEST-2 VIEWS - 08/03/2016 PA AND LATERAL RADIOGRAPH OF THE CHEST: COMPARISON: 06/17/2016. FINDINGS: The lungs are grossly clear. There is no discrete pleural fluid collection or evidence of pneumothorax. The cardiomediastinal silhouette and upper airway are grossly unremarkable. IMPRESSION: No evidence of acute chest pathology.
--- NOTE | 2016-08-04 10:17 | EKG Report ---
Test Performed on : 08/03/2016 5:13:28 PM Test Reason : PALPITATIONS Blood Pressure : / mmHG Vent. Rate : 075 BPM Atrial Rate : 075 BPM P-R Int : 140 ms QRS Dur : 088 ms QT Int : 414 ms P-R-T Axes : 036 049 024 degrees QTc Int : 462 ms Normal sinus rhythm. Nonspecific ST and T wave abnormality Prolonged QT Abnormal ECG When compared with ECG of 14-JUL-2016 21:46, Vent. rate has decreased BY [address] no longer depressed in Inferior leads T wave inversion now evident in Inferior leads Unconfirmed Result
--- NOTE | 2016-08-04 10:20 | EKG Report ---
Test Performed on : 08/03/2016 8:12:20 PM Test Reason : repeat Blood Pressure : / mmHG Vent. Rate : 058 BPM Atrial Rate : 058 BPM P-R Int : 144 ms QRS Dur : 092 ms QT Int : 468 ms P-R-T Axes : 047 048 066 degrees QTc Int : 459 ms Sinus bradycardia. Nonspecific T wave abnormality Abnormal ECG When compared with ECG of 03-AUG-2016 17:13, (Unconfirmed) Nonspecific T wave abnormality has replaced inverted T waves in Inferior leads Unconfirmed Result
== END 2016-08-03 22:15 | disposition home or self-care (01) ==
LOC: ED 16:43
DX: J18.1 Lobar pneumonia, unspecified organism (principal); R00.2 Palpitations; F41.9 Anxiety disorder, unspecified; I10 Essential (primary) hypertension; K21.9 Gastro-esophageal reflux disease without esophagitis; R51 Headache; E07.9 Disorder of thyroid, unspecified; F32.9 Major depressive disorder, single episode, unspecified; E66.9 Obesity, unspecified; R94.31 Abnormal electrocardiogram [ECG] [EKG]; Z79.899 Other long term (current) drug therapy
CPT/HCPCS: 71020; 80053; 82550; 83735; 83880; 84484; 85025; 85379; 85610; 85730; 93005; J0360; J2060

== ENCOUNTER 2018-08-13 11:29 | Observation (INO) ==
[2018-08-13] MEDS ORDERED: DILAUDID IV ONE (15:56)
[2018-08-13] MEDS ORDERED: PHENERGAN IM ONE (15:57)
[2018-08-13 16:48] LABS: BASO# 0.03 X1000 (0.0-0.2); BASO% 0.2 % (0.0-0.8); HEMATOCRIT 39.4 % (37.0-47.0); HEMOGLOBIN 12.8 g/dL (12.0-16.0); IMM GRAN# 0.06 X1000 (0.0-0.04); IMM GRAN% 0.3 % (0.0-0.5); LYMPH# 1.46 X1000 (1.2-3.4); LYMPH% 7.8 % (20.5-51.1); MCH 27.8 PG (27-31); MCHC 32.5 g/dL (33-37); MCV 85.5 FL (81-99); MONO# 0.36 X1000 (0.11-0.59); MONO% 1.9 % (1.7-9.3); MPV 10.8 FL (7.4-10.4); NEUT# 16.81 X1000 (1.4-6.5); NEUT% 89.8 % (42.2-75.2); PLT 375 X1000 (130-400); RBC 4.61 XMIL (4.2-5.4); RDW 16.2 % (11.5-14.5); WBC 18.72 X1000 (4.8-10.8)
[2018-08-13 16:54] LABS: AGAP 18; ALB/GLOB RATIO 1.4; ALBUMIN 4.8 g/dL (3.5-5.0); ALKALINE PHOSPHATASE 77 U/L (32-104); BUN 10 mg/dL (8-22); CHLORIDE 97 mmol/L (98-107); COSMO 275; CREATININE 0.7 mg/dL (0.5-0.9); ESTIMATED GFR > 60; GLUCOSE 132 mg/dL (70-104); GOT 28 U/L (10-30); GPT 34 U/L (10-36); LIPASE 22 U/L (13-60); POTASSIUM 4.5 mmol/L (3.5-5.1); SODIUM 137 mmol/L (136-145); TCO2 22 mmol/L (25-35); TOTAL BILIRUBIN 0.34 mg/dL (0.20-1.00); TOTAL PROTEIN 8.3 g/dL (6.3-8.3)
--- NOTE | 2018-08-13 18:05 | Diag Imaging Result Doc PS360 ---
EXAM: CT ABD/PELVIS W/IV CONT ONLY HISTORY: epigastric tender, WBC 18K TECHNIQUE: CT abdomen and pelvis with intravenous contrast COMPARISON: 02/09/2018 FINDINGS: The gallbladder has been removed. There is fatty infiltration of the liver. There is a small hiatal hernia. Normal spleen, pancreas, adrenal glands, and kidneys. Normal aorta. No bowel obstruction. There is stool throughout the colon. Normal appendix. No abscess. No ascites. The urinary bladder is distended and is normal. There is a 3.9 cm right ovarian cyst. There are several small left ovarian cysts. The largest is elongated measuring 2.0 cm in greatest diameter. The uterus has been removed. IMPRESSION: 1.Moderate sized right ovarian cyst 2.Fatty infiltration of the liver 3.Cholecystectomy 4.Small hiatal hernia 5.Hysterectomy 6.Mild constipation This exam was performed using automated exposure control, adjustment of mA or kV according to patient size, and/or use of iterative reconstruction technique. Electronically signed by Rhys Taylor 08/13/2018 6:02 PM
[2018-08-13] MEDS ORDERED: PROTONIX IV ONE (18:18)
[2018-08-13] MEDS ORDERED: G.I. COCKTAIL PO ONE (18:18)
[2018-08-13] MEDS ORDERED: SODIUM CHLORIDE 0.9% INJ ONE ×2 (18:18)
[2018-08-13] MEDS ORDERED: PEPCID IV ONE (18:18)
[2018-08-13] MEDS ORDERED: LOPRESSOR IV ONE (18:47)
[2018-08-13] MEDS ORDERED: TYLENOL PO PRN (20:29)
[2018-08-13] MEDS ORDERED: SODIUM CHLORIDE 0.9% INJ SCH (20:30)
[2018-08-13 21:31] LABS: URINE SOURCE CLEAN CATCH
[2018-08-13 21:39] LABS: BILIRUBIN URINE NEGATIVE (NEGATIVE); BLOOD URINE NEGATIVE (NEGATIVE); COLOR YELLOW; GLUCOSE URINE NEGATIVE (NEGATIVE); KETONE URINE TRACE mg/dL (NEGATIVE); LEUKOCYTES URINE NEGATIVE (NEGATIVE); NITRITE URINE NEGATIVE (NEGATIVE); PH URINE 7.5; PROTEIN URINE 200 mg/dL (NEGATIVE); SP GRAVITY URINE > 1.050; TURBIDITY URINE CLEAR (CLEAR); UROBILINOGEN URINE NORMAL (NORMAL)
[2018-08-13 21:40] LABS: UR EPITHELIAL CELLS <10 /HPF (<10); URINE BACTERIA NEGATIVE /HPF; URINE RBC <10 /HPF (<10); URINE WBC <10 /HPF (<10)
[2018-08-13] MEDS: PHENERGAN IV PRN (21:42)
[2018-08-13] MEDS: NS 1,000 ML IV SCH (21:45)
--- NOTE | 2018-08-13 21:51 | ED EKG INTERP ---
This chart was entered by Harsha Navarro Scribe, acting as scribe for Jaison Monique MD. EKG Interpretation - EKG Time of EKG reading by physician:: 20:14 EKG Read and Signed by:: Jaison Monique EKG Interpretation (*Must complete 3 of following elements*): Abnormal Rate: 71 Rhythm: NSR Comments: possible left atrial enlargement Attestation - Physician/ ILDA Attestation Patient care was provided by Advanced Practice Provider:: No The physician spent face to face time with patient:: Yes Advanced Practice Provider documentation review:: Supervising physician onsite and consulted in the evaluation and care of this patient. The physician did have a face to face encounter with the patient. This chart was documented by the indicated scribe, (Harsha Navarro Scribe) and accurately reflects the services I performed and decisions made by me, Jaison Monique MD, as attested by the provider's signature.
[2018-08-13] MEDS: DILAUDID IV PRN (21:54)
[2018-08-13 21:58] LABS: UR AMPHETAMINES QUAL NONE DETECTED (NONE DETECT); UR BARBITUATES QUAL NONE DETECTED (NONE DETECT); UR BENZODIAZEPIN QUAL PRESUMPTIVE POSITIVE (NONE DETECT); UR CANNABINOIDS QUAL NONE DETECTED (NONE DETECT); UR COCAINE QUAL NONE DETECTED (NONE DETECT); UR METHADONE QUAL NONE DETECTED (NONE DETECT); UR OPIATES QUAL NONE DETECTED (NONE DETECT); UR OXYCODONE QUAL NONE DETECTED (NONE DETECT); UR PCP QUAL NONE DETECTED (NONE DETECT)
[2018-08-14] MEDS: PHENERGAN IV PRN ×4 (04:07→23:13)
[2018-08-14] MEDS: DILAUDID IV PRN ×3 (04:07→17:37)
[2018-08-14] MEDS: PROTONIX IV SCH ×2 (05:28→17:37)
[2018-08-14 06:55] LABS: BASO# 0.02 X1000 (0.0-0.2); BASO% 0.1 % (0.0-0.8); EOS# 0.05 X1000 (0.0-0.7); EOS% 0.4 % (0.0-10.0); HEMATOCRIT 36.4 % (37.0-47.0); HEMOGLOBIN 11.7 g/dL (12.0-16.0); IMM GRAN# 0.03 X1000 (0.0-0.04); IMM GRAN% 0.2 % (0.0-0.5); LYMPH# 2.73 X1000 (1.2-3.4); MCH 27.7 PG (27-31); MCHC 32.1 g/dL (33-37); MCV 86.3 FL (81-99); MONO# 0.83 X1000 (0.11-0.59); MONO% 6.1 % (1.7-9.3); MPV 10.9 FL (7.4-10.4); NEUT% 73.2 % (42.2-75.2); PLT 356 X1000 (130-400); RBC 4.22 XMIL (4.2-5.4); RDW 16.4 % (11.5-14.5); WBC 13.66 X1000 (4.8-10.8)
[2018-08-14 07:18] LABS: CALCIUM 9.1 mg/dL (8.8-10.2); POTASSIUM 3.6 mmol/L (3.5-5.1)
--- NOTE | 2018-08-14 07:29 | EKG Report ---
Test Performed on : 08/13/2018 9:38:36 PM Test Reason : cp Blood Pressure : / mmHG Vent. Rate : 090 BPM Atrial Rate : 090 BPM P-R Int : 136 ms QRS Dur : 092 ms QT Int : 396 ms P-R-T Axes : 034 050 019 degrees QTc Int : 484 ms Normal sinus rhythm. Minimal voltage criteria for LVH, may be normal variant Nonspecific ST abnormality Prolonged QT Abnormal ECG When compared with ECG of 31-JUL-2017 14:45, Nonspecific T wave abnormality now evident in Inferior leads QT has lengthened Unconfirmed Result
--- NOTE | 2018-08-14 09:00 | HISTORY AND PHYSICAL ---
PRIMARY CARE PROVIDER: Dr. Sheng Shi. CHIEF COMPLAINT: Abdominal pain with nausea and vomiting. HISTORY OF PRESENT ILLNESS: Ms. Ludwig is a 47-year-old, female, who presented to the ER this afternoon for her second visit today complaining of periumbilical abdominal pain for which she states is constant and crampy in nature. The patient states that her abdominal pain has been unrelenting, and that the only thing that helps it is the pain medicine that she has received in the ER. Along with these symptoms, she has been having nausea and vomiting as well, and states that she is not really able to keep anything down at this time. The patient reports she does have a history of gastric ulcers. She also states that she did recently eat at a restaurant called [employer] on , approximately 4 days ago, and has been having abdominal pain, nausea and vomiting since, although she states her son ate with her, and he ate the same food she did, and he is not sick. She denies any diarrhea. The patient states she feels like she has had a fever, though she has not checked it. She is denying any dizziness, lightheadedness, although she is reporting a headache at this time. She denies any shortness of breath or chest pain. She denies any dysuria or urinary frequency. She denies any pain, numbness, tingling or swelling in extremities. Upon evaluation in the ER, she was noted to have leukocytosis with a white blood cell count of 18,720. Her chemistries were pretty unremarkable. Urinalysis did show protein and ketones, though was negative for any signs of infection. Though given her symptoms, I did perform a CT abdomen and pelvis with IV contrast, which showed a moderate right side ovarian cyst, fatty infiltration of the liver, cholecystectomy or a small hiatal hernia, hysterectomy and mild constipation. At this time, the patient will be admitted for further treatment and evaluation for intractable abdominal pain, nausea and vomiting. PAST MEDICAL HISTORY: 1. Chronic pelvic pain. The patient states that this has subsided since she has had her abdominal hysterectomy. 2. Hypertension. 3. Anxiety. 4. Depression. 5. Hypothyroidism. 6. Asthma. 7. Heart ablation for SVT. 8. ADD. 9. History of gastric ulcers. PAST SURGICAL HISTORY: 1. section x2. 2. Cholecystectomy. 3. Heart ablation for SVT. 4. Tubal ligation. 5. Abdominal hysterectomy with bilateral salpingectomy. SOCIAL HISTORY: The patient is a former smoker. She quit smoking at age 41, approximately 6 years ago, although she did smoke a half pack a day for a period of ten years. She denies any alcohol or illicit drug use. She denies any [id number] use of NSAIDs. 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 FAMILY HISTORY: Positive for her father passing away from heart failure. He was a reported heroin abuser. She reports her mom from Alzheimer disease. ALLERGIES: Patient reports allergies to morphine, Zofran, horses, pollen and cats. HOME MEDICATIONS: We are awaiting the patient's home medication list to be updated and verified. Once this is done, we will dress her home medicines. DIAGNOSTIC DATA/LABORATORY RESULTS: White blood cell count is 18,720, hemoglobin 12.8, hematocrit 39.4, platelet count is 375. Sodium 137, potassium 4.5, chloride 97, serum bicarbonate 22. BUN 10, creatinine 0.7. GFR greater than 60. Glucose 132, calcium 10. Liver function tests within normal limits. Troponin is less than 0.01. Lipase 22. TSH is 1.27. Urinalysis was obtained via clean catch, was positive for protein and ketones, was negative for glucose, blood, nitrites, leukocytes, white blood cells or bacteria. Urine drug screen was positive for opiates and benzodiazepines. From what I understand, the patient does take Xanax for anxiety, as well as Adderall for ADD. EKG showed normal sinus rhythm with a prolonged QT at a rate of 90 with a QTc of 484. CT abdomen and pelvis with IV contrast showed: 1. Moderate size right ovarian cyst. 2. Fatty infiltration of the liver. 3. Cholecystectomy. 4. A small hiatal hernia. 5. Hysterectomy. 6. Mild constipation. PHYSICAL EXAMINATION: VITAL SIGNS: Temperature 97.9 degrees, heart rate 90, respirations 20, blood pressure is 155/100. Oxygen saturation is 97% on room air. Previously in the ER, the patient's blood pressure was elevated although, upon my examination, the patient was experiencing a lot of pain. She was very restless and was unable to sit still. Though since being given pain medication and the blood pressure being taken with the patient is resting quietly, her blood pressure has improved and is only very slightly elevated at this time. HEENT: Head is atraumatic, normocephalic. Pupils are equal, round, reactive to light, were 3 mm bilaterally and brisk. Oral mucosa is slightly dry. Oropharynx is clear. NECK: Supple. Trachea midline. CARDIOVASCULAR: Patient has normal S1, S2. No murmurs, gallops, rubs appreciated with a regular rate and rhythm. PULMONARY: Patient has symmetrical chest expansion bilaterally. Lung sounds are clear to auscultation in bilateral full bryan. ABDOMEN: Soft. Nondistended. The patient was tender upon palpation in the periumbilical area. Bowel sounds were hypoactive. EXTREMITIES: No cyanosis, clubbing or edema noted. Pulse, motor, and sensory were intact in all extremities. Radial pulses and pedal pulses were 2+ bilaterally. INTEGUMENTARY: The patient's skin is pink, warm, and dry. NEUROLOGICAL: The patient is alert and oriented to person, place, time, and situation. She is able to move all extremities. There were no focal neurological deficits noted. ASSESSMENT AND PLAN: 1. Intractable abdominal pain. The patient is complaining of constant abdominal pain that is in the periumbilical area that she describes as crampy in nature. She does have a history of having gastric ulcers in the past. She did have some only mild constipation noted on her CT abdomen and pelvis. She is having nausea and vomiting with this as well. Given the symptoms, we have placed the patient on a clear liquid diet at this time. We will provide some gentle fluid hydration with normal saline. We will do Protonix 40 mg IV q. 12 hours. We have also given her Phenergan for nausea. The patient does have an allergy to Zofran. We will provide pain medication, Dilaudid. The patient states that pain medicine at this time the only thing that helps improve her pain. We have placed a consult with Dr. Perez with Gastroenterology; we will await their evaluation and further recommendations for management. 2. Nausea and vomiting. We will continue treatment as mentioned above for #1. 3. Leukocytosis. This could be reactive. The patient at this time does not have any known source of infection. Urinalysis was negative for any source of infection. CT abdomen and pelvis did not show any infectious process. She has not had reported cough, shortness of breath, and lung sounds are clear to auscultation in bilateral full bryan though blood cultures were obtained in the ER. We will repeat a CBC in the morning. We will continue to follow along and rule out any other source of infection. 4. Mild fluid volume depletion. We will continue normal saline at 85 mL per hour. 5. Hypertension. We are awaiting the patient's home medication list to be reconciled, though once done so we can continue these medications. The patient's blood pressure was elevated upon her arrival to the ED, though she was upon my examination in quite a bit of pain and was very restless, unable to sit still. Since being given pain medicine, the patient's blood pressure was taken while she was resting and has improved markedly with the last reading of 155/100. 6. Hypothyroidism. We are awaiting her home medication list to be reconciled. We will continue her medications for this. 7. Deep vein thrombosis prophylaxis will be provided with sequential compression devices. The patient has been placed on the medical floor with telemetry. She will have vital signs q. 4 hours. We will do strict intake and output. She will be on a clear liquid diet. We will repeat a CBC, BMP in the morning. Further orders and recommendations pending hospital course, diagnostic studies, and physician evaluation. Dictated by KVNG Wies for Fidencio Thapa MD cc: Fidencio Thapa MD
[2018-08-14] MEDS ORDERED: XANAX PO PRN (14:15)
[2018-08-14] MEDS ORDERED: DESYREL PO PRN (14:15)
[2018-08-14] MEDS ORDERED: CATAPRES PO PRN (14:15)
[2018-08-14] MEDS ORDERED: VENTOLIN HFA INH PRN (14:15)
[2018-08-14] MEDS: NS 1,000 ML IV SCH (14:42)
--- NOTE | 2018-08-14 17:28 | PROGRESS NOTE ---
DATE: 08/14/2018 SUBJECTIVE: Ms. Ludwig was admitted last night/early this morning. She is a patient of Dr. Hernandes. Came in with abdominal pain, nausea, vomiting. A 47-year-old who presented to the ER second visit complaining of periumbilical abdominal pain for which constant and crampy in nature. The patient states the abdominal pain has been unrelenting. Only thing that helps is pain medicine she receives in the ER. Along with these symptoms, she has been having nausea and vomiting as well. States that she was not really able to keep anything down. The patient reports she does have history of gastric ulcers. She also states she recently ate at a restaurant called [employer] on , approximately 4 days ago, and has been having abdominal pain, nausea, vomiting since. States that her son ate with her, ate same food she did and he did not get sick. Denies any diarrhea. Feels like she has had fever, though it is more subjective; she has not checked it. Denies any dizziness, lightheadedness, although she is reporting headaches. The main thing was headaches and the nausea. In the ER, she did have some leukocytosis, white blood cell count was 18,000. Chemistries pretty unremarkable. PAST MEDICAL HISTORY: 1. Chronic pelvic pain pay. She said this has subsided since she had her abdominal hysterectomy. 2. Hypertension. 3. Anxiety. 4. Depression. 5. Hypothyroidism. 6. Asthma. 7. Heart ablation for SVT. 8. Attention deficit disorder. 9. History of gastric ulcers. PAST SURGICAL HISTORY: 1. section. 2. Cholecystectomy. 3. Heart ablation. 4. Tubal ligation. 5. Abdominal hysterectomy and bilateral salpingectomy. ASSESSMENT AND PLAN: 1. So, admitted with intractable abdominal pain, complaining of constant abdominal pain, periumbilical area. She did have only mild constipation noted on CT of the abdomen and pelvis and the nausea and vomiting. We have given her Phenergan for nausea. The patient says she has an allergy for Zofran. They were giving her some Dilaudid for pain. Dr. Perez of GI is scheduled see. 2. Nausea and vomiting. This may all be a viral gastroenteritis. 3. Leukocytosis. I do not see any sign of bacterial infection. This very well could be just demargination from the nausea and cortisol induced leukocytosis. 4. Mild fluid volume depletion. They did give her some normal saline. 5. Hypertension. She continued her home medications. 6. Hypothyroidism. Continue her thyroid medication. LABORATORY DATA: White count down to 13,660, hematocrit 36, platelet count 356,000. Sodium 140, potassium 3.6, chloride 101, BUN 21, creatinine 1.0. TSH was 1.27. REVIEW OF HER ORDERS: She is getting Dilaudid 1 mg q.3 h. p.r.n., albuterol sulfate inhaler 2 puffs q.4-6 h., Xanax 0.5 mg b.i.d., amphetamine salts 20 mg b.i.d., Catapres 0.1 mg b.i.d. p.r.n., hydrochlorothiazide 25 mg every day, Synthroid 50 mcg daily, Cozaar 100 mg daily, metoprolol 25 mg b.i.d., normal saline at 85 mL an hour, Protonix 40 mg IV q.12 h., Desyrel 50 mg at bedtime p.r.n., Pepcid she got 1 dose this morning. Continue present measures. GI, Dr. Perez is consulted. I suspect she may have had a little viral gastroenteritis. I do not see any evidence to support food poisoning. cc: Joesph Franklin MD
[2018-08-14] MEDS ORDERED: PROTONIX IV SCH (18:00)
--- NOTE | 2018-08-14 18:03 | GASTROENTEROLOGY CONSULTATION ---
DATE: 08/14/2018 REASON FOR CONSULTATION: Intractable nausea and vomiting and abdominal pain. HISTORY OF PRESENT ILLNESS: Ms. Margaret Ludwig is a 47-year-old woman with past medical history of hypertension, hypothyroidism, SVT status post ablation, depression, ADHD, asthma, and remote history of peptic ulcer disease who presents with 45 days of intractable nausea, vomiting, and periumbilical pain. The patient describes being in usual state health until last when she developed multiple episodes of nonbloody, nonbilious emesis with retching. She also describes having associated severe periumbilical spasm that is [*]. She says that her symptoms are similar to when she had her partial hysterectomy last year as well as when she was hospitalized here about 8 or 9 years ago for peptic ulcer disease. At that time, she had a diagnostic EGD by Dr. Weiss that revealed Helicobacter pylori negative peptic ulcers. She has not had similar symptoms in the past. She does take ibuprofen rarely about once a week, although the day or 2 prior to her symptom onset she did take ibuprofen as well as Tylenol migraine which contains aspirin and caffeine. No change in bowel habits. No melena, diarrhea, hematochezia, hematemesis, abnormal weight loss. She does say that her brother had a partial gastrectomy secondary to complications from gastric ulcers. FAMILY HISTORY: No family history of GI malignancies. She is not on any blood thinners. REVIEW OF SYSTEMS: As per HPI, otherwise 12 point review of systems negative. PAST MEDICAL HISTORY: As per HPI. PAST SURGICAL HISTORY: She has had a partial hysterectomy, cholecystectomy, cardiac ablation, section x2, tubal ligation. SOCIAL HISTORY: She is a former smoker. No alcohol or drug use. Family history, brother has a history of peptic ulcer disease. No GI malignancies. ALLERGIES: Morphine, Zofran, horses, pollen, and cats. HOME MEDICATIONS: Include levothyroxine, Prozac, Hyzaar, Adderall, Xanax, albuterol, trazodone, clonidine, promethazine. PHYSICAL EXAMINATION: Vital Signs: Temperature 98.5 degrees, heart rate 78, respiratory rate 20, blood pressure 127/70, O2 saturation 98% on room air. General: Patient is a well-nourished, well- appearing woman in no acute distress. HEENT: Sclerae anicteric. Moist mucous membrane. Extraocular motor intact. Neck: No JVD. No lymphadenopathy. Cardiac: Regular rate and rhythm. No murmurs. Lungs: Clear to auscultation bilaterally. No wheezing or crackles. Abdomen: Obese. Nondistended. Bowel sounds present. Mild tenderness to palpation in the periumbilical area. No rebound or guarding. No ascites. Extremities: No clubbing, cyanosis, edema. Neurologic: Nonfocal. LABORATORY DATA: White count 13.66 from 18.7 on admission, hemoglobin 11.7, platelets of 356,000. Sodium 140, potassium 3.6, chloride 101, bicarb 25, BUN 21, creatinine of 1.0. LFTs are within normal limits. Lactate of 3.6, TSH 1.27. UA shows proteinuria. Urine toxicology positive for benzodiazepines. Imaging shows moderate size right ovarian cyst. Fatty infiltration of the liver status post cholecystectomy. small hiatal hernia status post hysterectomy. Mild constipation. Blood cultures x2 are pending. ASSESSMENT: Ms. Margaret Ludwig is a 47-year-old woman with [*] history of peptic ulcer disease, who presents with intractable nausea and periumbilical pain. Labs on admission show leukocytosis, now improving with IV fluids. Lactic acidosis. Exam currently is benign. Her pain is controlled with antiemetics and pain medications. She is on PPI IV twice a day. She is afraid to eat given the concern of recurrent nausea and vomiting. Differential includes esophagitis, gastritis, peptic ulcer disease. No evidence of pancreatitis. Lipase is normal. She does have an ovarian cyst. No significant findings on CT. PLAN: 1. N.p.o. after midnight for diagnostic EGD tomorrow. We will continue PPI. Clear liquid diet as tolerated. Antiemetics as per primary team. Leukocytosis is improving without antibiotics. Continue IV fluids. We will continue to monitor for signs of infection. Lactate is elevated. Vital signs are stable. No signs of sepsis on exam. She appears to be clinically improving. 2. Fatty liver, LFTs are within normal limits. No evidence of cirrhosis on exam. Thank you for this consult. We will follow with you. Please call with any questions or concerns.
[2018-08-14] MEDS: LOPRESSOR PO SCH (21:17)
[2018-08-14] MEDS: ADDERALL PO SCH (23:30)
[2018-08-15] MEDS: PROTONIX IV SCH (06:33)
[2018-08-15] MEDS ORDERED: SYNTHROID PO SCH (07:00)
[2018-08-15] MEDS ORDERED: XYLOCAINE-MPF 2% ONE (08:37)
[2018-08-15] MEDS ORDERED: DIPRIVAN 1% ONE (08:37)
[2018-08-15] MEDS ORDERED: PROZAC PO SCH (09:00)
[2018-08-15] MEDS ORDERED: HYDROCHLOROTHIAZIDE PO SCH (09:00)
[2018-08-15] MEDS ORDERED: COZAAR PO SCH (09:00)
--- NOTE | 2018-08-15 09:39 | OPERATIVE NOTE ---
PROCEDURE DATE: 08/15/2018 PROCEDURE: Upper GI endoscopy. PROVIDER: Donald Israel INDICATIONS: Nausea, vomiting, abdominal pain. MEDICATIONS: Monitored anesthesia care. DESCRIPTION OF PROCEDURE: Prior to procedure, a history and physical was performed. The patient medication allergies were reviewed. The patient's tolerance to previous anesthesia was also reviewed. The risks and benefits of procedure and sedation options, risks were discussed with the patient. All questions were answered. Informed consent was obtained. After reviewing the risks and benefits, the patient was deemed in satisfactory condition to undergo the procedure. The endoscope was passed under direct visualization. Throughout the procedure, the patient's blood pressure pulse and oxygen saturations were monitored continuously. The endoscope was introduced through the mouth and advanced to the second part of the duodenum. The upper GI endoscopy was accomplished without difficulty. The patient tolerated the procedure well. COMPLICATIONS: No immediate complications. ESTIMATED BLOOD LOSS: Minimal. FINDINGS: There was LA grade B reflux esophagitis, small hiatal hernia, striped gastritis in the antrum with erosions. Random biopsies were obtained with cold biopsy forceps to rule out H- pylori. The bulb and second portion duodenum were normal. Retroflexion in the stomach showed hiatal hernia as above. IMPRESSION: 1. LA grade B esophagitis 2. Small hiatal hernia. 3. Gastritis with erosions, biopsied. 4. Normal duodenum. RECOMMENDATIONS: Advance diet as tolerated. Transition IV PPI to p.o. twice daily. Await biopsy results. We will follow with you. Please call with any questions or concerns.
[2018-08-15] MEDS: PHENERGAN IV PRN (09:50)
[2018-08-15] MEDS: LOPRESSOR PO SCH (09:51)
[2018-08-15] MEDS: ADDERALL PO SCH (09:59)
[2018-08-15 15:38] VITALS: BP 131/1
--- NOTE | 2018-08-15 16:34 | DISCHARGE SUMMARY ---
ADMISSION DATE: 08/13/2018 DISCHARGE DATE: 08/15/2018 She is a patient of Dr. Sheng Shi. HISTORY: This 47-year-old female came to the emergency room complaining of periumbilical abdominal pain. She states is constant, crampy in nature. She states the abdominal pain had been unrelenting. Only thing that helped is the pain medication she received in the emergency room. Along with these symptoms she has been having nausea and vomiting as well. She states she has not been able to keep anything down. She does have a history of gastric ulcers. States that recently went to a restaurant called [employer] on which is approximately 4 days before this admission and afterwards had some abdominal pain, nausea, and vomiting. Her son who ate the same food did not seem to have any symptoms. She denied dizziness or lightheadedness, but did have a little bit of a headache. On evaluation emergency room was noted to have mild leukocytosis, white blood cell count of 18,000. Chemistries were pretty unremarkable. Lab unremarkable. PAST MEDICAL HISTORY: 1. Chronic pelvic pain. She states this subsided after she had an abdominal hysterectomy. 2. Hypertension. 3. Anxiety. 4. Depression. 5. Hypothyroidism. 6. Asthma. 7. Heart ablation for SVT. 8. ADD. 9. History of gastric ulcers. PAST SURGICAL HISTORY: 1. section x2. 2. Cholecystectomy. 3. Heart ablation for SVT. 4. Tubal ligation. 5. Abdominal hysterectomy and bilateral salpingectomy. HOSPITAL COURSE: So was admitted and put on some proton pump inhibitors, given some fluid. She seemed to feel better the next day. GI was consulted. She has a history of peptic ulcer disease and intractable nausea, periumbilical pain, some mild lactic acidosis. Seemed to be improving with fluids and proton pump inhibitor, but felt that they ought to look and so they did an EGD. EGD revealed gastritis. No sign of ulcers. She does feel much better. She has LA grade B esophagitis, small hiatal hernia, gastritis with erosions which were biopsied, and normal duodenum. So, she wanted to go home. Plan discharge her home. DISCHARGE MEDICATIONS: We will keep her on a proton pump inhibitor and some Carafate. Her home medications, Desyrel 50 mg at bedtime p.r.n., Protonix 40 mg twice a day, Lopressor 25 mg b.i.d., Cozaar 100 mg daily, Synthroid 50 mcg daily, hydrochlorothiazide 25 mg a day, Prozac 20 mg a day, Catapres 0.1 mg b.i.d. p.r.n., actually we will not give her prescription for that, Adderall she takes 20 mg b.i.d., Xanax 0.5 mg b.i.d. p.r.n., and I will put her on Carafate 1 g p.o. 4 times a day for 4 weeks and then she will stop that. FOLLOW UP: Follow up with her director of culture and follow up with primary care. cc: Joesph Franklin MD
[2018-08-15] MEDS ORDERED: PROTONIX PO SCH (21:00)
== END 2018-08-15 17:24 | disposition home or self-care (01) ==
LOC: ED 11:29 → SUATTDRO 21:11 → INTOOBSV 21:11 → 3N 21:11
PROVIDERS: ATTEND Emergency Medicine
CPT/HCPCS: 51701; 74177; 80048; 80053; 80101; 80301; 80307; 80324; 80345; 80346; 80353; 80358; 80361; 80365; 81001; 83605; 83690; 83992; 84443; 84484; 85025; 87040; 88305; 88312; 93005; 94761; 96372; 96374; 96375; 96376; 99285; A9270; C9113; G0431; G0434; G0479; G0480; J1170; J2550; J7030; P9612; Q9967; S0028; S0164

== ENCOUNTER 2018-08-16 06:04 | Inpatient (IN) ==
[2018-08-16] MEDS ORDERED: PHENERGAN PO ONE (06:36)
[2018-08-16] MEDS ORDERED: PHENERGAN IV ONE (06:42)
[2018-08-16] MEDS ORDERED: SODIUM CHLORIDE 0.9% INJ ONE ×3 (06:42→11:18)
--- NOTE | 2018-08-16 06:43 | PROVIDER DOCUMENTATION ---
HPI-Abdominal Pain/GI Problem - General Chief Complaint: Abdominal Pain Stated Complaint: ABD PAIN Time Seen by Provider: 08/16/18 06:36 Source: patient Allergies/Adverse Reactions: Patient Allergies Allergy/AdvReac Type Severity Reaction Status Date / Time morphine AdvReac Mild ITCHING Verified 08/16/18 06:19 codeine AdvReac ITCHING Verified 08/16/18 06:19 ondansetron [From Zofran] AdvReac ITCHING Verified 08/16/18 06:19 Home Medications: Home Medication List Medication Instructions Recorded Confirmed Last Taken Type Levothyroxine [Synthroid] 50 microgm PO DAILY@0700 09/22/15 08/16/18 01/21/18 09:00 History Alprazolam 0.5 mg PO BID PRN 10/03/17 08/16/18 02/05/18 History Amphetamine Salts [Adderall] 20 mg PO BID 08/14/18 08/16/18 Unknown History Clonidine [Catapres] 0.1 mg PO BID PRN 08/14/18 08/16/18 Unknown History Fluoxetine HCl [Prozac] 20 mg PO DAILY 08/14/18 08/16/18 Unknown History Hydrochlorothiazide 25 mg PO DAILY 08/14/18 08/16/18 Unknown History Losartan [Cozaar] 100 mg PO DAILY 08/14/18 08/16/18 Unknown History Metoprolol [Lopressor] 25 mg PO BID 08/14/18 08/16/18 Unknown History Promethazine [Phenergan] 25 mg PO TID PRN 08/14/18 08/16/18 Unknown History Trazodone [Desyrel] 50 mg PO QHS PRN 08/14/18 08/16/18 Unknown History Pantoprazole [Protonix] 40 mg PO BID 30 Days #60 tab 08/15/18 08/16/18 Unknown Rx Sucralfate [Carafate] 1 gm PO 4XDAY 30 Days #120 tab 08/15/18 08/16/18 Unknown Rx - History of Present Illness-ABD Nature of Presenting Problems: Patient is a 47 year old white female with recent gastritis requiring admission to [facility] in past week, just discharged yesterday, who presents with worsening 10/10 generalized abdominal cramping for past 6 hours with associated dry heaves. Followed by Dr. Shi. Abdominal Pain Onset Location: reports: generalized abdomen Review of Systems - Adult - REVIEW OF SYSTEMS - ADULT Constitutional: denies: chills, fever Eyes: denies: dry eyes, eye pain Ears, Nose, Mouth & Throat: reports: no symptoms reported Cardiovascular: denies: chest pain Respiratory: denies: cough, shortness of breath Gastrointestinal: reports: abdominal pain, nausea, vomiting Genitourinary: denies: dysuria Musculoskeletal: reports: no symptoms reported Integumentary: reports: no symptoms reported Neurological: reports: see HPI Psychiatric: reports: anxiety Endocrine: reports: no symptoms reported Hematologic/Lymphatic: reports: no symptoms reported Allergic/Immunologic: reports: no symptoms reported All Other Systems: Reviewed and Negative Past History - Adult - PAST MEDICAL HISTORY-ADULT Review of Records: reports: Old Records Reviewed, Nursing Assessment Review, Medications Reviewed Major Childhood Illnesses: reports: denies history Cardiovascular: reports: arrhythmia (SVT), HTN Respiratory: reports: asthma Gastrointestinal: reports: GERD, ulcer Obstetrical/Gynecological: reports: denies history Genitourinary: reports: incontinence. denies: kidney disease, kidney stones, polycystic kidney disease Musculoskeletal: reports: denies history Neurological: reports: CVA, headaches/migraines Psychiatric: reports: anxiety, depression, schizophrenia, other Endocrine/Immune: reports: thyroid disorder Other Conditions: reports: denies history - PRIOR SURGERIES/PROCEDURES Surgical/Procedure History: reports: cholecystectomy, hysterectomy, BTL, C- section - IMMUNIZATION STATUS Childhood Immunizations: See Nurse Assessment Flu Vaccine: See Nurse Assessment - FAMILY HISTORY Family History: reviewed, not pertinent Physical Exam-General - PHYSICAL EXAM-ADULT Initial Vital Signs Reviewed: Yes - CONSTITUTIONAL General Appearance: alert, no apparent distress - EYES Eyes: pink conjunctivae - HEAD, EARS, NOSE, MOUTH & THROAT HENMT: normocephalic/atraumatic, moist mucous membranes - NECK Neck: non-tender, full range of motion, supple - RESPIRATORY Respiratory: lungs clear - CARDIOVASCULAR Cardiovascular: normal peripheral pulses, regular rate, rhythm - GASTROINTESTINAL (ABDOMEN) Abdominal Exam: soft, tenderness. negative: guarding, rebound - LYMPHATIC Lymphatic: no adenopathy - MUSCULOSKELETAL Back Exam: normal inspection Extremity: normal range of motion Peripheral Pulses: radial (R): 2+, radial (L): 2+ - SKIN Integumentary: normal color, normal turgor, warm/dry - NEUROLOGIC Neurologic: grossly normal - PSYCHIATRIC Psych/Mental Status: anxious Progress - PLAN OF CARE/RESULTS Progress/Plan/Lab Results: Vital Signs - 8 hr 08/16/18 06:13 Temperature 98.3 F Pulse Rate 103 H Respiratory Rate 18 Blood Pressure 228/156 O2 Sat by Pulse Oximetry 96 Orders Category Date Time Status Saline Loc DIRECTED Care 08/16/18 06:37 Active NPO Diet 08/16/18 06:37 Active CBC WITH ELECTRONIC DIFF [HEME] Stat Lab 08/16/18 06:16 Received COMPREHENSIVE METABOLIC PANEL [CHEM] Stat Lab 08/16/18 06:39 Ordered LIPASE [CHEM] Stat Lab 08/16/18 06:[address] W/POSS RFLX CULT [URINALYSIS] Stat Lab 08/16/18 06:37 Uncollected Promethazine [Phenergan] Med 08/16/18 06:42 Once 12.5 mg IV NOW ONE Sodium Chloride 0.9% Med 08/16/18 06:42 Once 10 ml INJ NOW ONE Ryden: evaluated pt, pt says was admitted this week Monday at [facility] for central crampy abdominal pain and non bilious non bloody vomiting, d/cd yesterday, pain returned last night and came here, at the time on Monday the thought was it might be food related, pt says she has had episodes like this before and sees GI Dr Espinoza, says she had a CT this week review of care this week on admit, endoscope by Olga, gastritis and esophagitis, no CT done, pt has not taken her BP meds this am, likely reason BP so high plus pain, no n/v, will give her the po meds she takes, UA UDS pending, will call Olga re pt when all labs back [address] chest due esophagitis and wbc, and CT abdomen, hydrate and re eval 1058 call out to Esmeralda d/w him HPI as s/o pain location, info about admit Monday and endoscope results, my talk with Virgen who rec CTs, forgot to d/w him HTN, sent text 11:23 describing no HTN meds at home this am, did those, not better, getting IV 1128 checked on pt to d/w her admit and BP higher, hydralazine and second metoprolol has not been given yet, asked RN to give both, 220/112, want it a little lower before goes to floor, pt nauseated as phenergan as worn off 1145 Esmeralda replied, "send up and I'll adust" Result Diagrams: 08/16/18 06:16 08/16/18 06:16 - CHANGE OF SHIFT REPORT (ED Provider) 1 Report Given and Care Transferred to:: Dr. Lagunas Time of Transfer: 07:00 Items Pending: Labs Departure - Departure Date of Disposition Decision: 08/16/18 Time of Disposition Decision: 10:57 DIAGNOSIS: Uncontrolled hypertension, Esophagitis, Gastritis, Hypertension Abdominal pain Qualifiers: Abdominal location: generalized Qualified Code(s): R10.84 - Generalized abdominal pain Disposition: ADMITTED INPATIENT 09 Certified Medical Emergency: Emergent Condition: Stable - Critical Care Note This patient required my direct & personal management of CC.: No Attestation - Physician/ ILDA Attestation Patient care was provided by Advanced Practice Provider:: No The physician spent face to face time with patient:: Yes Advanced Practice Provider documentation review:: Supervising physician onsite and consulted in the evaluation and care of this patient. The physician did have a face to face encounter with the patient.
[2018-08-16 06:45] LABS: BASO# 0.02 X1000 (0.0-0.2); BASO% 0.1 % (0.0-0.8); EOS# 0.07 X1000 (0.0-0.7); EOS% 0.4 % (0.0-10.0); HEMOGLOBIN 12.1 g/dL (12.0-16.0); IMM GRAN# 0.03 X1000 (0.0-0.04); IMM GRAN% 0.2 % (0.0-0.5); LYMPH# 1.34 X1000 (1.2-3.4); MCH 28.3 PG (27-31); MCHC 33.6 g/dL (33-37); MCV 84.3 FL (81-99); MONO# 0.61 X1000 (0.11-0.59); MONO% 3.7 % (1.7-9.3); MPV 10.4 FL (7.4-10.4); NEUT# 14.62 X1000 (1.4-6.5); NEUT% 87.6 % (42.2-75.2); PLT 380 X1000 (130-400); RBC 4.27 XMIL (4.2-5.4); RDW 15.8 % (11.5-14.5); WBC 16.69 X1000 (4.8-10.8)
[2018-08-16] MEDS ORDERED: DILAUDID IV ONE (06:48)
[2018-08-16 06:56] LABS: AGAP 15; ALBUMIN 4.7 g/dL (3.5-5.0); ALKALINE PHOSPHATASE 70 U/L (32-104); BUN 17 mg/dL (8-22); CALCIUM 9.2 mg/dL (8.8-10.2); CHLORIDE 99 mmol/L (98-107); COSMO 279; CREATININE 0.6 mg/dL (0.5-0.9); ESTIMATED GFR > 60; GLUCOSE 134 mg/dL (70-104); GOT 17 U/L (10-30); GPT 25 U/L (10-36); LIPASE 42 U/L (13-60); POTASSIUM 4.1 mmol/L (3.5-5.1); SODIUM 138 mmol/L (136-145); TCO2 25 mmol/L (25-35); TOTAL PROTEIN 8.4 g/dL (6.3-8.3)
[2018-08-16] MEDS ORDERED: LR 1,000 ML IV ONE (07:32)
[2018-08-16] MEDS ORDERED: PEPCID IV ONE ×2 (07:36→11:18)
[2018-08-16] MEDS ORDERED: COZAAR PO ONE (08:13)
[2018-08-16] MEDS ORDERED: LOPRESSOR PO ONE (08:14)
[2018-08-16 09:05] LABS: BILIRUBIN URINE NEGATIVE (NEGATIVE); BLOOD URINE NEGATIVE (NEGATIVE); CLARITY CLEAR (CLEAR); COLOR YELLOW; GLUCOSE URINE NEGATIVE (NEGATIVE); KETONE URINE NEGATIVE (NEGATIVE); LEUKOCYTES URINE NEGATIVE (NEGATIVE); NITRITE URINE NEGATIVE (NEGATIVE); PROTEIN URINE NEGATIVE (NEGATIVE); SP GRAVITY URINE 1.005; UROBILINOGEN URINE NORMAL
[2018-08-16 09:07] LABS: URINE BACTERIA NEGATIVE /HFP; URINE CAST NONE SEEN /LPF; URINE CRYSTAL NONE SEEN /HPF; URINE EPITHELIAL CELLS <10 /HPF (<10); URINE RBC <10 /HPF (<10); URINE SOURCE CLEAN CATCH; URINE WBC <10 /HPF (<10); URINE YEAST PRESENT /HPF
[2018-08-16 09:19] LABS: UR AMPHETAMINES QUAL PRESUMPTIVE POSITIVE (NONE DETECT); UR BARBITUATES QUAL NONE DETECTED (NONE DETECT)
[2018-08-16 09:20] LABS: UR BENZODIAZEPIN QUAL PRESUMPTIVE POSITIVE (NONE DETECT); UR CANNABINOIDS QUAL NONE DETECTED (NONE DETECT); UR COCAINE QUAL NONE DETECTED (NONE DETECT); UR METHADONE QUAL NONE DETECTED (NONE DETECT); UR METHAMPHETAMINE QUAL NONE DETECTED (NONE DETECT); UR OPIATES QUAL NONE DETECTED (NONE DETECT); UR OXYCODONE QUAL NONE DETECTED (NONE DETECT); UR PCP QUAL NONE DETECTED (NONE DETECT); UR PROPOXYPHENE QUAL NONE DETECTED (NONE DETECT); UR TCA QUAL NONE DETECTED (NONE DETECT)
[2018-08-16] MEDS ORDERED: CATAPRES PO ONE (09:38)
[2018-08-16] MEDS ORDERED: NS 1,000 ML IV ONE ×2 (09:39→11:29)
[2018-08-16] MEDS: LOPRESSOR IV PRN ×3 (10:39→11:51)
--- NOTE | 2018-08-16 10:52 | Diag Imaging Result Doc PS360 ---
EXAM: CT THORAX/ABD/PELVIS W/CON - 08/16/2018 HISTORY: blunt trauma TECHNIQUE: CT thorax and abdomen/pelvis with intravenous contrast. COMPARISON: 08/13/2018 CT abdomen/pelvis FINDINGS: CT thorax: The lungs appear clear except for mild dependent atelectasis. There is no consolidation, pleural effusion, or pneumothorax identified. There is no mediastinal hematoma or pericardial fluid identified. The visualized bony structures appear grossly intact. CT abdomen/pelvis: There are no acute abnormalities of the liver, spleen, adrenal glands, or pancreas identified. The gallbladder surgically absent. The bilateral kidneys enhance homogeneously and show no evidence of injury. There is mild fullness of the renal pelvis and proximal ureter on the right, but there is no obstructing renal stone identified. There is no peritoneal or retroperitoneal hematoma identified. There is no free air or substantial free fluid identified. There is an apparent 3.7 cm right ovarian cyst similar to prior. The visualized bony structures appear grossly intact. There are some lower lumbar spine degenerative changes noted. IMPRESSION: CT thorax: No evidence of acute disease. No evidence of injury to the thorax. CT abdomen/pelvis: No evidence of injury to the abdomen or pelvis. Mild fullness of right renal pelvis and proximal right ureter. No obstructing renal stone identified. Apparent 3.7 cm right ovarian cyst similar to prior. This exam was performed using automated exposure control, adjustment of mA or kV according to patient size, and/or use of iterative reconstruction technique. Electronically signed by Trace Benitez 08/16/2018 10:50 AM
[2018-08-16] MEDS ORDERED: APRESOLINE IV ONE (10:56)
[2018-08-16] MEDS ORDERED: REGLAN IV ONE (11:29)
[2018-08-16] MEDS ORDERED: APRESOLINE IV PRN (12:52)
[2018-08-16] MEDS ORDERED: ZOFRAN IV PRN (12:53)
[2018-08-16] MEDS ORDERED: TYLENOL PO PRN (12:53)
[2018-08-16] MEDS ORDERED: SODIUM CHLORIDE 0.9% INJ SCH (13:00)
[2018-08-16] MEDS ORDERED: DILAUDID IV PRN (13:09)
[2018-08-16] MEDS ORDERED: PHENERGAN IV PRN (13:10)
[2018-08-16] MEDS ORDERED: SODIUM CHLORIDE 0.9% INJ PRN (13:10)
[2018-08-16] MEDS: PROTONIX IV SCH (13:31)
--- NOTE | 2018-08-16 19:23 | HISTORY AND PHYSICAL ---
CHIEF COMPLAINT: Nausea, vomiting. HISTORY OF PRESENT ILLNESS: The patient is a 47-year-old female who presented to the ER with nausea, vomiting, and abdominal pain. She states that she was just in the hospital for a very similar situation, and was diagnosed with gastritis and peptic ulcer disease via EGD last week. Noted that yesterday she left the hospital and she was feeling fine and wanted to go home. However, after getting home, she states she was unable to eat or drink. States the pain became more severe and therefore she came to the hospital. SOCIAL HISTORY: Patient is . She is employed at [employer]. Lives in [place]. ALLERGIES: Morphine, codeine, and Zofran, all causing itching. MEDICATIONS: 1. Synthroid 50. 2. Xanax 0.5 b.i.d. p.r.n. 3. Adderall. 4. Clonidine 0.1. 5. Phenergan p.r.n. 6. Protonix. 7. Carafate. PAST MEDICAL HISTORY: 1. History of supraventricular tachycardia. 2. Hypertension. 3. Asthma. 4. Reflux. 5. Peptic ulcer disease with recent gastritis. 6. History of depression. 7. Schizophrenia. 8. Hypothyroidism. 9. Recurrent migraines. PAST SURGICAL HISTORY: 1. History of cholecystectomy. 2. Hysterectomy. 3. BTL. 4. . REVIEW OF SYSTEMS: As noted above. Patient notes she has severe abdominal pain, nausea, vomiting, and unable to keep down anything orally. Denies any blood in her emesis. Denies any diarrhea, constipation, or melena. Denies any hematochezia. Denies hematuria. Denies dysuria, frequency, urgency, hesitancy, polyuria or polydipsia. Denies any fevers or chills. Denies any skin rashes. FAMILY HISTORY: Noncontributory. PHYSICAL EXAMINATION: VITAL SIGNS: Reviewed. Temperature 98 degrees, pulse 103, respiratory rate 18, BP 228/156 initially in the ER. After her home medications and 0.5 of Dilaudid, her blood pressure is 110. GENERAL: Initially in the ER, the patient is panting and crying, complaining of severe, intense, excruciating, uncontrollable, unstoppable abdominal pain. Thankfully, after 0.5 of Dilaudid IV, she is currently in the ICU laughing and talking, asking to have something to drink, and appears to be in no distress. Her blood pressures, as noted, were markedly elevated in the ER and currently are very well controlled in the ICU. HEENT: Normocephalic. NECK: Supple. CARDIOVASCULAR: Regular rate. CHEST: Clear, nonlabored. ABDOMEN: Soft. Unable to actually examine her abdomen in the ER due to her severe, diffuse, unrelenting pain. Thankfully, after presenting to the ICU, her abdomen is soft, nondistended, and certainly appears nontender. This are positive bowel sounds. EXTREMITIES: Moves all extremities. NEUROLOGIC: No focal changes. ASSESSMENT: 1. Nausea, vomiting, abdominal pain. 2. Peptic ulcer disease. 3. Depression with chronic anxiety. I certainly expect that this is contributing, if not the major cause, of her current symptoms. She definitely has gastritis and peptic ulcer disease and although this is painful, her symptoms appear initially to be more severe than the typical course for this diagnosis. 4. Hypertension. Blood pressures are much improved. We will continue her home medications. 5. Leukocytosis. White count is 16, which is actually better than her white count on discharge from the hospital. PLAN: 1. We will continue patient in the ICU for now. 2. Continue symptomatic treatment. 3. Continue her home medications. 4. We will use Dilaudid as needed. 5. We will continue Phenergan, as she notes that she is allergic to Zofran. cc: Sheng Shi MD
[2018-08-17] MEDS: PROTONIX IV SCH ×2 (02:29→22:12)
--- NOTE | 2018-08-17 12:21 | PROGRESS NOTE ---
DATE: 08/17/2018 SUBJECTIVE: The patient notes overall he is feeling better. Denies any current fevers or chills. Denies any current chest pains or palpitations. OBJECTIVE: Vital Signs: Reviewed and stable. Temperature 98 degrees, pulse 63, respiratory rate 16, BP 106/57. General: She is awake and alert. She is in no current respiratory distress. She is very pleasant to talk with, appears much improved. Blood pressures are tremendously improved. She currently denies any pain. States she is able to drink liquids without any issues. HEENT: Normocephalic. Neck: Supple. Cardiovascular: Regular rate. Chest: Clear. Abdomen: Soft. Extremities: Moves all extremities. Neurologic: No focal changes. ASSESSMENT: 1. Nausea and vomiting. 2. Epigastric abdominal pain continues to improve slightly. 3. Myalgias. 4. Paresthesias. 5. Paroxysmal sweating. 6. Hypertension, much improved. 7. Chronic anxiety. 8. Others. PLAN: We will continue the patient in the hospital. Continue to follow. Advance her diet as tolerated. Restart her home medications. Hopefully she can discharge home over the next 1 or 2 days if her symptoms continue to improve. Discussed with the patient that she does have significant gastritis and that this is not something that will resolve quickly. Further orders as needed. Will hopefully transfer to the floor and we will follow. cc: Sheng Shi MD
[2018-08-17] MEDS ORDERED: CATAPRES PO PRN (12:39)
[2018-08-17] MEDS ORDERED: PHENERGAN PO PRN (12:39)
[2018-08-17] MEDS ORDERED: DESYREL PO PRN (12:39)
[2018-08-17] MEDS ORDERED: XANAX PO PRN (12:39)
[2018-08-17] MEDS: CARAFATE PO SCH ×3 (13:16→21:51)
[2018-08-17] MEDS: PROZAC PO SCH (13:16)
[2018-08-17] MEDS: HYDROCHLOROTHIAZIDE PO SCH (13:16)
[2018-08-17] MEDS: LOPRESSOR PO SCH ×2 (13:16→21:51)
[2018-08-17] MEDS: COZAAR PO SCH (13:16)
[2018-08-17] MEDS: PROTONIX PO SCH (21:51)
[2018-08-18] MEDS ORDERED: SYNTHROID PO SCH (07:00)
[2018-08-18 07:05] LABS: HEMATOCRIT 31.7 % (37.0-47.0); HEMOGLOBIN 10.5 g/dL (12.0-16.0); MCH 27.9 PG (27-31); MCHC 33.1 g/dL (33-37); MCV 84.3 FL (81-99); MPV 10.9 FL (7.4-10.4); RBC 3.76 XMIL (4.2-5.4); RDW 15.4 % (11.5-14.5); WBC 9.55 X1000 (4.8-10.8)
[2018-08-18 07:25] LABS: AGAP 13; ALBUMIN 3.4 g/dL (3.5-5.0); ALKALINE PHOSPHATASE 55 U/L (32-104); BUN 11 mg/dL (8-22); CALCIUM 8.4 mg/dL (8.8-10.2); CHLORIDE 102 mmol/L (98-107); COSMO 275; CREATININE 0.6 mg/dL (0.5-0.9); ESTIMATED GFR > 60; GLUCOSE 103 mg/dL (70-104); GOT 11 U/L (10-30); GPT 16 U/L (10-36); POTASSIUM 3.3 mmol/L (3.5-5.1); SODIUM 138 mmol/L (136-145); TCO2 23 mmol/L (25-35); TOTAL PROTEIN 6.5 g/dL (6.3-8.3)
[2018-08-18 07:59] VITALS: BP 165/86
[2018-08-18] MEDS: HYDROCHLOROTHIAZIDE PO SCH (08:05)
[2018-08-18] MEDS: PROZAC PO SCH (08:05)
[2018-08-18] MEDS: LOPRESSOR PO SCH (08:05)
[2018-08-18] MEDS: PROTONIX PO SCH (08:05)
[2018-08-18] MEDS: COZAAR PO SCH (08:05)
[2018-08-18] MEDS: CARAFATE PO SCH (08:05)
--- NOTE | 2018-08-18 14:43 | DISCHARGE SUMMARY ---
ADMISSION DATE: 08/16/2018 DISCHARGE DATE: 08/18/2018 DISCHARGE DIAGNOSES: 1. Nausea, vomiting. 2. Gastritis. 3. Peptic ulcer disease. 4. Chronic anxiety, depression. 5. Hypertension. 6. Leukocytosis. CONSULTATIONS: None. PROCEDURES: None. BRIEF HOSPITAL COURSE: The patient was admitted to the hospital after having just been discharged. She went home and attempted to eat and started having abdominal pain. I certainly feel as though anxiety had a large portion of her symptoms. Her blood pressure was markedly elevated when she reached the ER due to her pain and anxiety. After being given 1 dose of Dilaudid, her anxiety, depression and her pain dramatically improved. Thankfully, she overall had an uneventful hospital course. She was advanced to a GI soft diet. DISPOSITION: Patient will be discharged home. Did write prescription for pain pills for a short period of time, as well as Carafate. She will continue to follow her other prescriptions at home. Discussed that she needs to eat a very small diet only as tolerated over the next several days. She does not need to eat on a regular basis any large meals for the next several weeks. cc: Sheng Shi MD
== END 2018-08-18 09:50 | disposition home or self-care (01) | DRG 392 ==
LOC: P.ED 06:04 → P.MEDSURG 06:05 → P.ICU 14:04 → P.MEDSURG 08-17 12:56
PROVIDERS: ADMIT Family Medicine; ATTEND Family Medicine
CPT/HCPCS: 71260; 74177; 80053; 80104; 80301; 80305; 81001; 83690; 85025; 85027; 87040; 96361; 96374; 96375; 96376; 99285; A9270; C9113; G0431; G0434; G0477; J0360; J1170; J2550; J2765; J7030; J7120; Q9967; S0028; S0164

== ENCOUNTER 2018-11-21 21:56 | Observation (INO) ==
[2018-11-21] MEDS ORDERED: NS 1,000 ML IV ONE ×2 (22:12→23:56)
[2018-11-21 22:55] LABS: BASO# 0.04 X1000 (0.0-0.2); BASO% 0.3 % (0.0-0.8); EOS# 0.44 X1000 (0.0-0.7); EOS% 3.4 % (0.0-10.0); HEMOGLOBIN 12.6 g/dL (12.0-16.0); IMM GRAN# 0.02 X1000 (0.0-0.04); IMM GRAN% 0.2 % (0.0-0.5); LYMPH% 11.6 % (20.5-51.1); MCH 27.7 PG (27-31); MCHC 33.2 g/dL (33-37); MCV 83.5 FL (81-99); MONO# 0.62 X1000 (0.11-0.59); MONO% 4.8 % (1.7-9.3); MPV 10.6 FL (7.4-10.4); NEUT# 10.28 X1000 (1.4-6.5); NEUT% 79.7 % (42.2-75.2); PLT 334 X1000 (130-400); RBC 4.55 XMIL (4.2-5.4); RDW 14.5 % (11.5-14.5)
[2018-11-21 23:00] LABS: OCCULT BLOOD 1 NEGATIVE (NEGATIVE)
--- NOTE | 2018-11-21 23:04 | PROVIDER DOCUMENTATION ---
This chart was entered by Louis Mcnally Scribe, acting as scribe for Antony Fiore MD. HPI-Syncope/Dizziness - General Chief Complaint: Weakness Stated Complaint: WEAKNESS Time Seen by Provider: 11/21/18 22:12 Source: patient Allergies/Adverse Reactions: Patient Allergies Allergy/AdvReac Type Severity Reaction Status Date / Time morphine AdvReac Mild ITCHING Verified 08/16/18 06:19 codeine AdvReac ITCHING Verified 08/16/18 06:19 ondansetron [From Zofran] AdvReac ITCHING Verified 08/16/18 06:19 Home Medications: Home Medication List Medication Instructions Recorded Confirmed Last Taken Type Levothyroxine [Synthroid] 50 microgm PO DAILY@0700 09/22/15 08/16/18 01/21/18 09:00 History Alprazolam 0.5 mg PO BID PRN 10/03/17 08/16/18 02/05/18 History Amphetamine Salts [Adderall] 20 mg PO BID 08/14/18 08/16/18 Unknown History Clonidine [Catapres] 0.1 mg PO BID PRN 08/14/18 08/16/18 Unknown History Fluoxetine HCl [Prozac] 20 mg PO DAILY 08/14/18 08/16/18 Unknown History Hydrochlorothiazide 25 mg PO DAILY 08/14/18 08/16/18 Unknown History Losartan [Cozaar] 100 mg PO DAILY 08/14/18 08/16/18 Unknown History Metoprolol [Lopressor] 25 mg PO BID 08/14/18 08/16/18 Unknown History Trazodone [Desyrel] 50 mg PO QHS PRN 08/14/18 08/16/18 Unknown History Pantoprazole [Protonix] 40 mg PO BID 30 Days #60 tab 08/15/18 08/16/18 Unknown Rx Hydrocodone/APAP 7.5 mg/325 mg 1 ea PO Q6H PRN PRN #14 tab 08/18/18 Unknown Rx [[place]-7.5] Promethazine [Phenergan] 25 mg PO TID PRN #60 tab 08/18/18 Unknown Rx - History of Present Illness-Syncope/Dizzy Nature of Presenting Problem: Pt is a 48 yof who presents to the ED with a CC of dizziness. Pt state she has been dizzy for several days. Pt states she lost her balance and had trouble walking today, which is not normal for her. Pt states she had two strokes in September, and has had chronic dizziness since. Pt states her dizziness and loss of balance today is above the normal for her. Pt also complains of nausea, vomiting , and having a headache for several days. Pt reports a hx of ulcers and HBP. Prior Episodes: reports: recent history Onset/Duration: reports: other (See HPI) Timing: reports: still present Context: reports: felt faint Current Symptoms: reports: abdominal pain, nausea, weakness, dizzy, headache, pale, weak pulse Similar symptoms previously: reports: previous diagnosis Recently Seen Here or By Another Healthcare Provider: No - Dizziness Severity in ED: reports: moderate Dizziness Related Current/Associated Symptoms: reports: nausea/vomiting (Nauseas), lightheaded, dizzy, headache, pale, weak pulse, off balance, cannot walk Patient usually:: reports: walks without assistance Review of Systems - Adult - REVIEW OF SYSTEMS - ADULT Constitutional: reports: see HPI. denies: chills, fever, fatique, night sweats, weight loss Eyes: reports: no symptoms reported Ears, Nose, Mouth & Throat: reports: no symptoms reported Cardiovascular: reports: no symptoms reported Respiratory: reports: no symptoms reported Gastrointestinal: reports: see HPI, abdominal pain, nausea. denies: constipation, diarrhea, rectal bleeding, vomiting Genitourinary: reports: no symptoms reported Musculoskeletal: reports: see HPI Integumentary: reports: no symptoms reported Neurological: reports: see HPI, dizziness/vertigo (Dizziness), headache/migraines (Headache), loss of balance Psychiatric: reports: no symptoms reported Endocrine: reports: see HPI, change in skin pigment. denies: cold intolerance, heat intolerance, increased hunger Hematologic/Lymphatic: reports: no symptoms reported Allergic/Immunologic: reports: no symptoms reported All Other Systems: Reviewed and Negative Past History - Adult - PAST MEDICAL HISTORY-ADULT Review of Records: reports: Old Records Reviewed, Nursing Assessment Review, Medications Reviewed, Social history reviewed & non-contributory. Major Childhood Illnesses: reports: denies history Cardiovascular: reports: arrhythmia, HTN Respiratory: reports: asthma Gastrointestinal: reports: GERD, ulcer Obstetrical/Gynecological: reports: denies history Genitourinary: reports: incontinence. denies: kidney disease, kidney stones, polycystic kidney disease Musculoskeletal: reports: denies history Neurological: reports: CVA, headaches/migraines Psychiatric: reports: anxiety, depression, schizophrenia, other Endocrine/Immune: reports: thyroid disorder Other Conditions: reports: denies history - PRIOR SURGERIES/PROCEDURES Surgical/Procedure History: reports: cholecystectomy, hysterectomy, BTL, C- section - IMMUNIZATION STATUS Childhood Immunizations: See Nurse Assessment Flu Vaccine: See Nurse Assessment - FAMILY HISTORY Family History: reviewed, not pertinent - SOCIAL HISTORY Smoking: denies, non-smoker Substance Use: none/never, denies Alcohol Use Frequency: never Physical Exam-General - PHYSICAL EXAM-ADULT Initial Vital Signs Reviewed: Yes - CONSTITUTIONAL General Appearance: appears well, alert, mild distress - EYES Eyes: PERRL/EOMI. negative: EOM palsy, meningismus, pale conjunctivae - HEAD, EARS, NOSE, MOUTH & THROAT HENMT: negative: moist mucous membranes, angioedema, dental decay, hearing deficit, pharyngeal erythema - NECK Neck: non-tender, full range of motion, supple. negative: carotid bruit, C- spine tenderness, limited range of motion, lymphadenopathy, meningismus - RESPIRATORY Respiratory: chest non-tender, lungs clear, normal breath sounds, no pleuratic chest pain, no respiratory distress, no accessory muscle use. negative: respiratory distress, decreased breath sounds, accessory muscle use, stridor, wheezing, dull on percussion, prolonged expiration - CARDIOVASCULAR Cardiovascular: normal peripheral pulses, regular rate, rhythm, no edema, no gallop, no JVD, no murmur. negative: JVD, bradycardia, diastolic murmur, systolic murmur, gallop/S4, friction rub - GASTROINTESTINAL (ABDOMEN) Abdominal Exam: normal bowel sounds, soft, tenderness (Mildly). negative: distended, guarding, rigid, rebound - MUSCULOSKELETAL Extremity: normal range of motion, non-tender. negative: abnormal NV exam, calf tenderness, deformity, erythema, inflammation - SKIN Integumentary: warm/dry, blanching. negative: abrasion(s), erythema, signs of IVDA, jaundice, laceration(s) - NEUROLOGIC Neurologic: grossly normal, no motor/sensory deficits. negative: aphasia, EOM palsy, facial droop, focal weakness, sensory deficit - PSYCHIATRIC Psych/Mental Status: normal mood/affect, normal thought content, normal thought process, oriented x 3. negative: disoriented x 3, anxious, disheveled, depressed affect Progress - PLAN OF CARE/RESULTS Progress/Plan/Lab Results: Vital Signs - 8 hr 11/21/18 22:02 Temperature 97.4 F L Pulse Rate 55 L Respiratory Rate 18 Blood Pressure 89/61 O2 Sat by Pulse Oximetry 93 L Laboratory Results - last 24 hr 11/21/18 11/21/18 11/21/18 22:30 22:35 22:35 WBC 12.90 H RBC 4.55 Hgb 12.6 Hct 38.0 MCV 83.5 MCH 27.7 MCHC 33.2 RDW Std Deviation 14.5 Plt Count 334 MPV 10.6 H Immature Gran % (Auto) 0.2 Neut % (Auto) 79.7 H Lymph % (Auto) 11.6 L Coffee % (Auto) 4.8 Eos % (Auto) 3.4 Baso % (Auto) 0.3 Immature Gran # (Auto) 0.02 Neut # (Auto) 10.28 H Lymph # (Auto) 1.50 Coffee # (Auto) 0.62 H Eos # (Auto) 0.44 Baso # (Auto) 0.04 PT INR PTT (Actin FS) POC Glucose Troponin T Plasma Lactate Serum , Qual NEGATIVE Stool Occult Blood NEGATIVE 11/21/18 11/21/18 11/21/18 22:35 22:35 22:35 WBC RBC Hgb Hct MCV MCH MCHC RDW Std Deviation Plt Count MPV Immature Gran % (Auto) Neut % (Auto) Lymph % (Auto) Coffee % (Auto) Eos % (Auto) Baso % (Auto) Immature Gran # (Auto) Neut # (Auto) Lymph # (Auto) Coffee # (Auto) Eos # (Auto) Baso # (Auto) PT 13.7 INR 1.00 PTT (Actin FS) 29.2 POC Glucose Troponin T < 0.010 Plasma Lactate 1.4 Serum , Qual Stool Occult Blood 11/21/18 22:45 WBC RBC Hgb Hct MCV MCH MCHC RDW Std Deviation Plt Count MPV Immature Gran % (Auto) Neut % (Auto) Lymph % (Auto) Coffee % (Auto) Eos % (Auto) Baso % (Auto) Immature Gran # (Auto) Neut # (Auto) Lymph # (Auto) Coffee # (Auto) Eos # (Auto) Baso # (Auto) PT INR PTT (Actin FS) POC Glucose 145 H Troponin T Plasma Lactate Serum , Qual Stool Occult Blood Orders Category Date Time Status Cardiac Monitoring DIRECTED Care 11/21/18 22:12 Active FSBS/Accucheck Result NOW Care 11/21/18 22:15 Active BLOOD CULTURE [BLDCUL] Stat Lab 11/21/18 22:44 Ordered CBC WITH ELECTRONIC DIFF [HEME] Stat Lab 11/21/18 22:35 Completed HCG [ TEST-SERUM] [PREG] Stat Lab 11/21/18 22:35 Completed LACTATE, PLASMA [CHEM] Stat Lab 11/21/18 22:35 Completed OCCULT BLOOD SCREEN STOOL PL Stat Lab 11/21/18 22:30 Completed PROTIME WITH INR [COAG] Stat Lab 11/21/18 22:35 Completed PTT [COAG] Stat Lab 11/21/18 22:35 Completed TROPONIN T Stat Lab 11/21/18 22:35 Completed 0.9% Sodium Chloride Inj [Ns] 1,000 ml Med 11/21/18 22:12 Discontinued IV 999 mls/hr Oxygen Device Stat Oth 11/21/18 22:14 Active EKG [EKG] Stat Ther 11/21/18 22:13 Ordered Result Diagrams: 11/21/18 22:35 - CONSULTS/PCP/HOSPITALIST Notification #1 *Consult/PCP/Hospitalist*: Dr. Coleman, hospitalist Time Discussed: 23:50 Consult Disposition: Admit Departure - Departure Date of Disposition Decision: 11/21/18 Time of Disposition Decision: 23:56 DIAGNOSIS: Orthostatic hypotension Disposition: ADMITTED INPATIENT 09 Certified Medical Emergency: Emergent Condition: Stable Referrals and Follow-Ups: Sheng Shi MD [Primary Care Provider] - - Critical Care Note This patient required my direct & personal management of CC.: No Attestation - Physician/ ILDA Attestation Patient care was provided by Advanced Practice Provider:: No The physician spent face to face time with patient:: Yes Advanced Practice Provider documentation review:: Supervising physician onsite and consulted in the evaluation and care of this patient. The physician did have a face to face encounter with the patient. This chart was documented by the indicated scribe, (Louis Mcnally, Jack) and accurately reflects the services I performed and decisions made by Adebayo blank Joseph A., MD, as attested by the provider's signature.
[2018-11-21 23:09] LABS: PROTIME 13.7 Seconds (11.0-16.0)
[2018-11-21 23:10] LABS: PTT 29.2 Seconds (22.3-41.8)
--- NOTE | 2018-11-22 01:36 | EKG Report ---
Test Performed on : 11/21/2018 11:13:59 PM Test Reason : pain Blood Pressure : / mmHG Vent. Rate : 051 BPM Atrial Rate : 051 BPM P-R Int : 166 ms QRS Dur : 084 ms QT Int : 514 ms P-R-T Axes : 049 060 064 degrees QTc Int : 473 ms Sinus bradycardia. Otherwise normal ECG When compared with ECG of 13-AUG-2018 21:38, Vent. rate has decreased BY [address] elevation now present in Inferior leads Nonspecific T wave abnormality no longer evident in Inferior leads Unconfirmed Result
[2018-11-22 06:30] LABS: BASO# 0.03 X1000 (0.0-0.2); BASO% 0.3 % (0.0-0.8); EOS# 0.19 X1000 (0.0-0.7); EOS% 1.9 % (0.0-10.0); HEMATOCRIT 35.3 % (37.0-47.0); HEMOGLOBIN 11.4 g/dL (12.0-16.0); IMM GRAN# 0.02 X1000 (0.0-0.04); IMM GRAN% 0.2 % (0.0-0.5); LYMPH# 1.64 X1000 (1.2-3.4); LYMPH% 16.8 % (20.5-51.1); MCH 27.3 PG (27-31); MCHC 32.3 g/dL (33-37); MCV 84.4 FL (81-99); MONO# 0.57 X1000 (0.11-0.59); MONO% 5.8 % (1.7-9.3); MPV 10.8 FL (7.4-10.4); NEUT# 7.31 X1000 (1.4-6.5); PLT 296 X1000 (130-400); RBC 4.18 XMIL (4.2-5.4); RDW 14.6 % (11.5-14.5); WBC 9.76 X1000 (4.8-10.8)
--- NOTE | 2018-11-22 11:12 | Diag Imaging Result Doc PS360 ---
EXAM: CT HEAD W/O CONTRAST 11/22/2018 HISTORY: Headache, Hx of stroke TECHNIQUE: This exam was performed using automated exposure control, adjustment of mA or kV according to patient size, and/or use of iterative reconstruction technique. COMMENT: There is no evidence of mass effect, bleed, or abnormal extra-axial fluid collection. There is some periventricular white matter lucency present particularly in the frontal lobes. There is also some white matter lucency in the right external capsule. Compared to the previous study of 06/01/2017, there has been no significant change in the appearance the brain. IMPRESSION: Chronic ischemic microvascular changes. No evidence of acute disease. Electronically signed by Tomas Obrien 11/22/2018 11:10 AM
[2018-11-22] MEDS: PHENERGAN IV PRN ×3 (11:19→19:52)
[2018-11-22] MEDS: PRILOSEC PO SCH (11:19)
[2018-11-22] MEDS: SODIUM CHLORIDE 0.9% INJ PRN ×2 (11:19→14:52)
--- NOTE | 2018-11-22 11:19 | HISTORY AND PHYSICAL ---
PRIMARY CARE PHYSICIAN: Dr. Sheng Shi. CHIEF COMPLAINT: Dizziness and headache. HISTORY OF PRESENT ILLNESS: This is a 48-year-old female with past medical history of hypertension, asthma, schizophrenia, and hypothyroidism who presented to the emergency department last night complaining of headache and dizziness. In the ER she was found to be hypotensive. The patient reports feeling that way for the last 3 days. She is also complaining of headache. She usually has headaches, but those were getting worse along with nausea. Blood pressures usually ranged between 120 to 175 mostly when she uses clonidine as p.r.n. medication for blood pressure. In the emergency department, as we mentioned before, the blood pressure was documented at 89/61. She has been admitted for observation. According to her, the last time that her blood pressure medication has been adjusted was in September 2018 when she was admitted to the hospital at [facility] for a new stroke. PAST MEDICAL HISTORY: 1. Essential hypertension. 2. Bronchial asthma. 3. Gastroesophageal reflux disease. 4. Peptic ulcer disease. 5. History of depression. 6. Schizophrenia, not specified. 7. Hypothyroidism, 8. Recurrent migraines. 9. Two strokes. Last one on Oct 17 2018 and stayed at [facility] hospital for a week. PAST SURGICAL HISTORY: 1. Cholecystectomy. 2. Hysterectomy. 3. Bilateral tubal ligation. 4. . ALLERGIES: The patient is allergic to morphine, codeine, and Zofran. All of those cause itching. SOCIAL HISTORY: The patient is . She does not drink any alcohol or smoke tobacco. The patient is employed [employer]. REVIEW OF SYSTEMS: Eleven systems were reviewed and all symptoms are related to H and P. FAMILY HISTORY: Noncontributory. PHYSICAL EXAMINATION: VITAL SIGNS: Temperature 97.5 degrees, heart rate 64, respiratory 14, blood pressure 123/76, and O2 saturation 100% on room air. GENERAL: This is a [id number], 48-year-old, female lying in bed in no acute distress. HEENT: Head is normocephalic, atraumatic. Mucous membranes moist. Pupils equally round and reactive to light and accommodation. NECK: No JVD noted. No carotid bruits. No lymphadenopathy. No thyromegaly. CARDIOVASCULAR: S1, S2 heard. No murmurs, gallops, or rubs. Regular rate and rhythm. RESPIRATORY: Clear bilaterally to auscultation. No work of breathing or using accessory muscles. ABDOMEN: Soft. Nontender to palpation. Bowel sounds present. No organomegaly. EXTREMITIES: No clubbing, cyanosis, or edema. Peripheral pulses present in both legs. NEUROLOGICAL: The patient alert and oriented x3. Moves 4 extremities. LABORATORY DATA: Reviewed. White cell count is 9.726, hemoglobin 11.4, hematocrit 35.3, platelets 296,000. Troponin has been checked and it was negative. ASSESSMENT AND PLAN: 1. Hypotension. The patient is being admitted to the hospital for observation for this condition. At this point because the blood pressure is much better, we are not going to continue with IV fluids. We have held all her blood pressure medications by now. We will monitor 24 hours, and if blood pressure is better we may discharge her tomorrow. 2. Worsening headaches. The patient reports in September 2018 she was admitted to the hospital for a week in [facility] for new stroke. Considering that her headaches are getting worse, I prefer to go ahead and check a CT of the head without contrast to see if there is any worsening stroke. Clinically, she does not look like it, but we will rule it out. In the meantime, we will provide medications for pain and for nausea control as well. 3. Depression with chronic anxiety. We will continue home medications. 4. Gastroesophageal reflux disease. We will continue with omeprazole. 5. Hypothyroidism. We will check TSH. DISPOSITION: As we mentioned before, we will monitor blood pressure closely, and if blood pressure is much better and CT is normal we can let her go home. cc: MD Sheng Kaye MD [facility]
[2018-11-22] MEDS: DEMEROL PO PRN ×3 (11:20→19:52)
[2018-11-23] MEDS: PHENERGAN IV PRN ×3 (03:08→11:53)
[2018-11-23] MEDS: DEMEROL PO PRN ×3 (03:08→11:54)
[2018-11-23 05:23] LABS: BASO# 0.04 X1000 (0.0-0.2); BASO% 0.6 % (0.0-0.8); EOS# 0.47 X1000 (0.0-0.7); HEMATOCRIT 35.1 % (37.0-47.0); HEMOGLOBIN 11.3 g/dL (12.0-16.0); IMM GRAN# 0.01 X1000 (0.0-0.04); IMM GRAN% 0.1 % (0.0-0.5); LYMPH# 1.97 X1000 (1.2-3.4); LYMPH% 29.4 % (20.5-51.1); MCH 27.4 PG (27-31); MCHC 32.2 g/dL (33-37); MONO# 0.56 X1000 (0.11-0.59); MONO% 8.4 % (1.7-9.3); MPV 10.6 FL (7.4-10.4); NEUT# 3.64 X1000 (1.4-6.5); NEUT% 54.5 % (42.2-75.2); PLT 280 X1000 (130-400); RBC 4.13 XMIL (4.2-5.4); RDW 14.5 % (11.5-14.5); WBC 6.69 X1000 (4.8-10.8)
[2018-11-23 05:37] LABS: AGAP 9; BUN 13 mg/dL (8-22); CALCIUM 8.6 mg/dL (8.8-10.2); CHLORIDE 105 mmol/L (98-107); COSMO 279; CREATININE 0.6 mg/dL (0.5-0.9); ESTIMATED GFR > 60; GLUCOSE 98 mg/dL (70-104); POTASSIUM 4.2 mmol/L (3.5-5.1); SODIUM 140 mmol/L (136-145); TCO2 26 mmol/L (25-35)
[2018-11-23] MEDS: PRILOSEC PO SCH (06:23)
[2018-11-23] MEDS: SODIUM CHLORIDE 0.9% INJ PRN ×2 (07:34→11:54)
[2018-11-23 11:33] VITALS: BP 163/88
--- NOTE | 2018-11-23 18:18 | DISCHARGE SUMMARY ---
ADMISSION DATE: 11/22/2018 DISCHARGE DATE: 11/23/2018 ADMISSION DIAGNOSES: 1. Hypotension. 2. Worsening headache. 3. Depression with chronic anxiety. 4. Gastroesophageal reflux disease. 5. Hypothyroidism. DISCHARGE DIAGNOSES: 1. Hypotension, resolved. 2. Headaches, improved. 3. Depression with chronic anxiety. No change. Continue current medications. 4. Gastroesophageal reflux disease. Continue with omeprazole. 5. Hypothyroidism. No change. CONSULTATIONS: None. PROCEDURES OR SURGERIES: None. HOSPITAL COURSE: Ms. Margaret Ludwig is a 48-year-old female with a medical history of hypertension, asthma, schizophrenia, and hypothyroidism, who presented to [facility] with complaints of headaches and dizziness on the 22 of November. She was found to be hypotensive and apparently she had been feeling dizziness with a headache for about three days. She was having some nausea also. She does have a history of hypertension and she uses clonidine p.r.n. Systolically, she was in the 80s when she presented. She was continued on IV fluids to fully hydrate. Blood pressure improved. Head CT was performed as she was having headaches, which only showed chronic ischemic microvascular changes. She had a new stroke back in September but nothing new this time. Vitals were stable and she was deemed appropriate for discharge home. DISCHARGE VITAL SIGNS: Temperature 99.2, heart rate 74, respiratory rate 18, blood pressure 163/88, O2 saturation 99% on room air. DISCHARGE LAB DATA: White blood cell count 6000, hemoglobin 11, hematocrit 35, platelet count 280,000. Sodium 140, potassium 4.2, BUN 13, creatinine 0.6, glucose 98, calcium 8.6. DISCHARGE MEDICATIONS: 1. Atorvastatin 80 mg p.o. nightly. 2. Adderall 20 mg p.o. twice daily. 3. Buspirone 15 mg p.o. twice daily. 4. Clonazepam 0.5 mg p.o. twice daily. 5. Permethrin application topically. 6. Neurontin 100 mg p.o. twice daily. 7. Metoprolol tartrate 50 mg p.o. twice daily. 8. Protonix 40 mg p.o. daily. 9. Prozac 60 mg p.o. daily. 10.Synthroid 50 mcg p.o. daily. 11.Demerol 50 mg p.o. every four hours p.r.n. 12.Phenergan 25 mg p.o. every six hours p.r.n. DISCHARGE DIET: Heart healthy. DISCHARGE ACTIVITY: As tolerated. DISCHARGE INSTRUCTIONS: If your condition changes, contact your physician and/or return to the emergency department. Changes may include, but are not limited to shortness of breath, increased fatigue, excessive bleeding, unexplained weight loss or gain, unimaginable pain, signs or symptoms of infection. DISCHARGE DISPOSITION: Home. FOLLOWUP: Follow up with Dr. Sheng Shi. Dictated by KVNG Little for Bret Alatorre MD Addendum: Patient seen and examined by myself. Agree with KVNG note. It reflects my assessment and plan. Patient is being discharged from hospital in stable condition. Will be seen by her PCP in a week. cc: KVNG Little MD Gregory S. Cheatham, MD [facility]
== END 2018-11-23 13:20 | disposition home or self-care (01) ==
LOC: P.ED 21:56 → P.MEDSURG 21:56
PROVIDERS: ADMIT Family Medicine; ATTEND Internal Medicine
CPT/HCPCS: 70450; 80048; 82270; 82948; 83605; 84484; 84703; 85025; 85610; 85730; 87040; 93005; A9270; J2550; J7030; XXXXX

== ENCOUNTER 2019-04-17 11:03 | Observation (INO) ==
[2019-04-17] MEDS ORDERED: LABETALOL IV ONE ×2 (11:30→12:59)
[2019-04-17 12:20] LABS: BASO# 0.04 X1000 (0.0-0.2); BASO% 0.5 % (0.0-0.8); EOS# 0.18 X1000 (0.0-0.7); EOS% 2.3 % (0.0-10.0); HEMATOCRIT 37.7 % (37.0-47.0); HEMOGLOBIN 12.2 g/dL (12.0-16.0); IMM GRAN# 0.01 X1000 (0.0-0.04); IMM GRAN% 0.1 % (0.0-0.5); LYMPH# 1.51 X1000 (1.2-3.4); LYMPH% 19.1 % (20.5-51.1); MCHC 32.4 g/dL (33-37); MCV 86.7 FL (81-99); MONO# 0.62 X1000 (0.11-0.59); MONO% 7.8 % (1.7-9.3); MPV 11.3 FL (7.4-10.4); NEUT# 5.55 X1000 (1.4-6.5); NEUT% 70.2 % (42.2-75.2); PLT 292 X1000 (130-400); RBC 4.35 XMIL (4.2-5.4); RDW 14.7 % (11.5-14.5); WBC 7.91 X1000 (4.8-10.8)
[2019-04-17 12:30] LABS: INR 0.94
[2019-04-17 12:31] LABS: AGAP 12; ALBUMIN 4.3 g/dL (3.5-5.0); ALKALINE PHOSPHATASE 63 U/L (32-104); BUN 17 mg/dL (8-22); CALCIUM 9.5 mg/dL (8.8-10.2); CHLORIDE 105 mmol/L (98-107); COSMO 280; CREATININE 0.7 mg/dL (0.5-0.9); ESTIMATED GFR > 60; GLUCOSE 108 mg/dL (70-104); GOT 15 U/L (10-30); GPT 15 U/L (10-36); POTASSIUM 3.9 mmol/L (3.5-5.1); PTT 32.4 Seconds (22.3-41.8); SODIUM 139 mmol/L (136-145); TCO2 22 mmol/L (25-35); TOTAL PROTEIN 6.9 g/dL (6.3-8.3)
--- NOTE | 2019-04-17 12:44 | Diag Imaging Result Doc PS360 ---
EXAM: CT HEAD W/O CONTRAST - 04/17/2019 HISTORY: H/A, HTN, hx of ICH TECHNIQUE: CT head without contrast COMPARISON: 01/25/2019 FINDINGS: There are chronic ischemic changes with old lacunar infarcts similar to prior. There is no indication of recent infarct, although acute infarcts may not be immediately visible. There is no evidence of intracranial hemorrhage, mass effect, or midline shift. There is no evidence of skull fracture. There is mild paranasal sinus disease noted which is most conspicuous at the sphenoid sinus. IMPRESSION: Chronic ischemic changes similar to prior. No visible acute intracranial abnormality. No hemorrhage or mass effect. There is mild paranasal sinus disease noted which is most conspicuous at the sphenoid sinus. This exam was performed using automated exposure control, adjustment of mA or kV according to patient size, and/or use of iterative reconstruction technique. Electronically signed by Trace Benitez 04/17/2019 12:41 PM
--- NOTE | 2019-04-17 12:45 | EKG Report ---
Test Performed on : 04/17/2019 11:57:32 AM Test Reason : BP Blood Pressure : / mmHG Vent. Rate : 072 BPM Atrial Rate : 072 BPM P-R Int : 140 ms QRS Dur : 086 ms QT Int : 400 ms P-R-T Axes : 049 041 038 degrees QTc Int : 438 ms Normal sinus rhythm. Normal ECG When compared with ECG of 21-NOV-2018 23:13, No significant change was found Unconfirmed Result
[2019-04-17 12:56] LABS: URINE BACTERIA 4+ /HFP; URINE CAST NONE SEEN /LPF; URINE CRYSTAL NONE SEEN /HPF; URINE EPITHELIAL CELLS >10 /HPF (<10); URINE WBC <10 /HPF (<10); URINE YEAST NONE SEEN /HPF
[2019-04-17] MEDS ORDERED: DILAUDID IV ONE (12:59)
[2019-04-17] MEDS ORDERED: ROCEPHIN 1 GM in NS 50 ML IV ONE (13:02)
[2019-04-17] MEDS ORDERED: APRESOLINE IV ONE ×2 (13:52→14:46)
--- NOTE | 2019-04-17 15:42 | PROVIDER DOCUMENTATION ---
This chart was entered by Bethany Palafox Scribe, acting as scribe for Juan Oneill MD. HPI-Female /OB/Breast - General Chief Complaint: B/P Problems Stated Complaint: POSS UTI SX Time Seen by Provider: 04/17/19 11:30 Source: reports: patient Allergies/Adverse Reactions: Patient Allergies Allergy/AdvReac Type Severity Reaction Status Date / Time morphine AdvReac Mild ITCHING Verified 04/17/19 11:13 codeine AdvReac ITCHING Verified 04/17/19 11:13 ondansetron [From Zofran] AdvReac ITCHING Verified 04/17/19 11:13 Home Medications: Home Medication List Medication Instructions Recorded Confirmed Last Taken Type Levothyroxine [Synthroid] 50 microgm PO DAILY@0700 09/22/15 04/17/19 04/17/19 History Clonazepam 0.5 mg PO BID 11/22/18 04/17/19 04/17/19 History Fluoxetine [Prozac] 60 mg PO DAILY 11/22/18 04/17/19 04/17/19 History Metoprolol Tartrate 50 mg PO BID 11/22/18 04/17/19 04/17/19 History Clonidine [Catapres] 0.1 mg PO DAILY #30 tab 02/23/19 04/17/19 04/17/19 Rx Amoxicillin 500 mg PO Q8HR #15 cap 04/17/19 Unknown Rx [place]/Na Phos/Meth Blue/Hyos 1 ea PO Q6H #12 tab 04/17/19 Unknown Rx [Urogesic-Blue] - History of Present Illness-Female /OB Nature of Presenting Problem: 48yof presents to ED cc dysuria, urinary retention since last night and headache with elevated b/p and blurry vision this morning. Pt reports headache is worse than usual. Pt denies chest pain/F/SOB/numbness/tingling/N/V/D. Pt has hx of HTN, CVA and frequent UTI's. Pt is A&Ox3 and in no acute distress upon exam. Location of complaint: reports: urethral Quality of Pain: reports: burning Severity in ED: reports: mild Onset/Duration: reports: last night Timing: reports: still present Context/Activities at Onset: reports: light activity Urinary Symptoms: reports: dysuria, frequency, retention Modifying Factors: worse with: urinating Associated Symptoms: reports: other (headache) Similar Symptoms Previously?: Yes Recently seen or treated by another doctor?: Yes (seen in ED 02/23/19) Review of Systems - Adult - REVIEW OF SYSTEMS - ADULT Constitutional: reports: see HPI. denies: chills, fever Eyes: reports: see HPI, blurred vision Ears, Nose, Mouth & Throat: reports: no symptoms reported Cardiovascular: reports: see HPI. denies: chest pain Respiratory: reports: see HPI. denies: shortness of breath Gastrointestinal: reports: see HPI. denies: diarrhea, nausea, vomiting Genitourinary: reports: see HPI, dysuria, frequency. denies: urinary retention Musculoskeletal: reports: no symptoms reported Integumentary: reports: no symptoms reported Neurological: reports: see HPI, headache/migraines. denies: numbness Psychiatric: reports: no symptoms reported Endocrine: reports: no symptoms reported Hematologic/Lymphatic: reports: no symptoms reported Allergic/Immunologic: reports: no symptoms reported All Other Systems: Reviewed and Negative Past History - Adult - PAST MEDICAL HISTORY-ADULT Review of Records: reports: Nursing Assessment Review, Medications Reviewed, Social history reviewed & non-contributory. Major Childhood Illnesses: reports: denies history Cardiovascular: reports: arrhythmia, HTN Respiratory: reports: asthma Gastrointestinal: reports: GERD, ulcer Obstetrical/Gynecological: reports: denies history Genitourinary: reports: incontinence. denies: kidney disease, kidney stones, polycystic kidney disease Musculoskeletal: reports: denies history Neurological: reports: CVA, headaches/migraines Psychiatric: reports: anxiety, depression, schizophrenia, other Endocrine/Immune: reports: thyroid disorder Other Conditions: reports: denies history - PRIOR SURGERIES/PROCEDURES Surgical/Procedure History: reports: cholecystectomy, hysterectomy, BTL, C- section - IMMUNIZATION STATUS Childhood Immunizations: See Nurse Assessment Flu Vaccine: See Nurse Assessment - FAMILY HISTORY Family History: reviewed, not pertinent - SOCIAL HISTORY Smoking: denies Physical Exam-General - PHYSICAL EXAM-ADULT Initial Vital Signs Reviewed: Yes - CONSTITUTIONAL General Appearance: appears well, alert, no apparent distress. negative: combative - EYES Eyes: PERRL/EOMI, pink conjunctivae. negative: photophobia - HEAD, EARS, NOSE, MOUTH & THROAT HENMT: normocephalic/atraumatic, moist mucous membranes. negative: angioedema - NECK Neck: normal inspection - RESPIRATORY Respiratory: chest non-tender, lungs clear, normal breath sounds. negative: wheezing - CARDIOVASCULAR Cardiovascular: normal peripheral pulses, regular rate, rhythm, no edema. negative: bradycardia, tachycardia - GASTROINTESTINAL (ABDOMEN) Abdominal Exam: non tender, soft. negative: rebound - MUSCULOSKELETAL Back Exam: normal inspection, no CVA tenderness, no vertebral tenderness Extremity: normal inspection. negative: deformity - SKIN Integumentary: normal color. negative: diaphoresis, jaundice - NEUROLOGIC Neurologic: bacteriologist fishery II-XII nml as tested, grossly normal, no motor/sensory deficits - PSYCHIATRIC Psych/Mental Status: normal mood/affect, oriented x 3. negative: disheveled Progress - PLAN OF CARE/RESULTS Progress/Plan/Lab Results: Vital Signs - 8 hr 04/17/19 11:07 04/17/19 12:00 04/17/19 14:18 Temperature 97.6 F 98 F Pulse Rate 95 H 67 67 Respiratory Rate 18 20 16 Blood Pressure 213/127 183/115 155/105 O2 Sat by Pulse Oximetry 95 97 96 Laboratory Results - last 24 hr 04/17/19 04/17/19 04/17/19 11:58 11:58 11:58 WBC 7.91 RBC 4.35 Hgb 12.2 Hct 37.7 MCV 86.7 MCH 28.0 MCHC 32.4 L RDW Std Deviation 14.7 H Plt Count 292 MPV 11.3 H Immature Gran % (Auto) 0.1 Neut % (Auto) 70.2 Lymph % (Auto) 19.1 L [place] % (Auto) 7.8 Eos % (Auto) 2.3 Baso % (Auto) 0.5 Immature Gran # (Auto) 0.01 Neut # (Auto) 5.55 Lymph # (Auto) 1.51 [place] # (Auto) 0.62 H Eos # (Auto) 0.18 Baso # (Auto) 0.04 PT 13.0 INR 0.94 PTT (Actin FS) 32.4 Sodium 139 Potassium 3.9 Chloride 105 Carbon Dioxide 22 L Anion Gap 12 BUN 17 Creatinine 0.7 Estimated GFR/1.73 m2 > 60 BUN/Creatinine Ratio 24 Glucose 108 H Calculated Osmolality 280 Calcium 9.5 Total Bilirubin 0.20 AST 15 ALT 15 Alkaline Phosphatase 63 Total Protein 6.9 Albumin 4.3 Globulin 3.0 Albumin/Globulin Ratio 2.0 Urine Source Urine Color Urine Turbidity Urine pH Ur Specific [place] Urine Protein Ur Glucose (Stick) Ur Ketones (Stick) Urine Blood Urine Nitrite Urine Bilirubin Urobilinogen Dipstick Urine Leukocytes Urine WBC (Auto) Urine RBC (Auto) U Epithel Cells (Auto) Urine Bacteria (Auto) Urine Microscopic RBC Urine Microscopic WBC Ur Epithelial Cells Urine Crystals Small Round Cells Urine Bacteria Urine Casts Urine Trichomonas Urine Yeast-like Cells Urine Yeast 04/17/19 04/17/19 12:00 12:00 WBC RBC Hgb Hct MCV MCH MCHC RDW Std Deviation Plt Count MPV Immature Gran % (Auto) Neut % (Auto) Lymph % (Auto) [place] % (Auto) Eos % (Auto) Baso % (Auto) Immature Gran # (Auto) Neut # (Auto) Lymph # (Auto) [place] # (Auto) Eos # (Auto) Baso # (Auto) PT INR PTT (Actin FS) Sodium Potassium Chloride Carbon Dioxide Anion Gap BUN Creatinine Estimated GFR/1.73 m2 BUN/Creatinine Ratio Glucose Calculated Osmolality Calcium Total Bilirubin AST ALT Alkaline Phosphatase Total Protein Albumin Globulin Albumin/Globulin Ratio Urine Source Cancelled Urine Color Cancelled Urine Turbidity Cancelled Urine pH Cancelled Ur Specific [place] Cancelled Urine Protein Cancelled Ur Glucose (Stick) Cancelled Ur Ketones (Stick) Cancelled Urine Blood Cancelled Urine Nitrite Cancelled Urine Bilirubin Cancelled Urobilinogen Dipstick Cancelled Urine Leukocytes Cancelled Urine WBC (Auto) Cancelled Urine RBC (Auto) Cancelled U Epithel Cells (Auto) Cancelled Urine Bacteria (Auto) Cancelled Urine Microscopic RBC 10-20 A Urine Microscopic WBC <10 Ur Epithelial Cells >10 Urine Crystals Cancelled NONE SEEN Small Round Cells Cancelled Urine Bacteria 4+ Urine Casts Cancelled NONE SEEN Urine Trichomonas Cancelled Urine Yeast-like Cells Cancelled Urine Yeast NONE SEEN Orders Category Date Time Status CT HEAD W/O CONTRAST [CT] Stat Exams 04/17/19 12:22 Completed CBC WITH DIFF [HEME] Stat Lab 04/17/19 11:58 Completed COMPREHENSIVE METABOLIC PANEL [CHEM] Stat Lab 04/17/19 11:58 Completed PROTIME WITH INR [COAG] Stat Lab 04/17/19 11:58 Completed PTT [COAG] Stat Lab 04/17/19 11:58 Completed URINE MICROSCOPIC ONLY [URINALYSIS] Stat Lab 04/17/19 12:00 Completed CefTRIAXONE [Rocephin] 1 gm Med 04/17/19 13:02 Discontinued 0.9% Sodium Chloride Inj [Ns] 50 ml IV NOW Hydralazine [Apresoline] Med 04/17/19 13:52 Discontinued 5 mg IV NOW ONE Hydralazine [Apresoline] Med 04/17/19 14:46 Discontinued 5 mg IV NOW ONE Hydromorphone [Dilaudid] Med 04/17/19 12:59 Discontinued 1 mg IV NOW ONE Labetalol Med 04/17/19 11:30 Discontinued 20 mg IV NOW ONE Labetalol Med 04/17/19 12:59 Discontinued 40 mg IV NOW ONE EKG [EKG] Stat Ther 04/17/19 11:14 Draft Result Diagrams: 04/17/19 11:58 04/17/19 11:58 - EKG 1 Time of EKG reading by physician:: 12:14 EKG Read and Signed by:: Juan Oneill EKG Interpretation (*Must complete 3 of following elements*): Normal Rate: 72 Rhythm: NSR QRS: normal ST Wave: normal - CT/MRI 1 CT Study: Head Impression: See EMR Report (IMPRESSION: Chronic ischemic changes similar to prior. No visible acute intracranial abnormality. No hemorrhage or mass effect. There is mild paranasal sinus disease noted which is most conspicuous at the sphenoid sinus. This exam was performed using automated exposure control, adjustment of mA or kV according to patient size, and/or use of iterative reconstruction technique. Electronically signed by Trace Benitez 04/17/2019 12:41 PM) - CONSULTS/PCP/HOSPITALIST Notification #1 *Consult/PCP/Hospitalist*: [place] Time Discussed: 15:40 Consult Disposition: Admit Departure - Departure Date of Disposition Decision: 04/17/19 Time of Disposition Decision: 14:39 DIAGNOSIS: Malignant hypertension Urinary tract infection Qualifiers: Urinary tract infection type: acute cystitis Hematuria presence: with hematuria Qualified Code(s): N30.01 - Acute cystitis with hematuria Disposition: ADMITTED INPATIENT 09 Certified Medical Emergency: Emergent Condition: Stable Additional Instructions: ED Follow Up Instructions: You have been treated by a care provider in the Emergency Department. These instructions are being provided to you so you can have an understanding of how to care for yourself upon discharge. Upon discharge from the Emergency Department, you are responsible for making arrangements for follow-up care by a physician of your choice. Take all prescribed medications as directed. Return to the Emergency Department immediately for any new or worsening symptoms. You may call the Physician Referral phone number at [phone] to obtain a list of Physicians who are taking new patients. Prescriptions: Amoxicillin 500 mg PO Q8HR #15 cap [place]/Na Phos/Meth Blue/Hyos [Urogesic-Blue] 1 ea PO Q6H #12 tab Referrals and Follow-Ups: Sheng Shi MD [Primary Care Provider] - - Critical Care Note This patient required my direct & personal management of CC.: Yes Total Time (mins): 40 (mult eval of BP, meds given) Critical Care Statement: This patient required my direct personal management to treat or rule out processes, the absence of which, could potentiallly result in sudden, clinically significant life or limb threatening deterioration. Attestation - Physician/ ILDA Attestation Patient care was provided by Advanced Practice Provider:: No The physician spent face to face time with patient:: Yes Advanced Practice Provider documentation review:: Supervising physician onsite and consulted in the evaluation and care of this patient. The physician did have a face to face encounter with the patient. This chart was documented by the indicated scribe, (Bethany Palafox, Jack) and accurately reflects the services I performed and decisions made by me, Juan Oneill MD, as attested by the provider's signature.
[2019-04-17] MEDS ORDERED: APRESOLINE IV PRN ×2 (16:51→16:53)
[2019-04-17] MEDS ORDERED: CATAPRES PO ONE (16:52)
[2019-04-17] MEDS: NS 1,000 ML IV SCH (18:26)
[2019-04-17] MEDS: TYLENOL PO PRN (18:26)
[2019-04-17] MEDS ORDERED: FLU VACCINE IM ONE (19:00)
[2019-04-17] MEDS: KLONOPIN PO SCH (20:44)
[2019-04-17] MEDS: LOPRESSOR PO SCH (20:44)
--- NOTE | 2019-04-17 23:52 | HISTORY AND PHYSICAL ---
CHIEF COMPLAINT: Elevated blood pressure. HISTORY OF PRESENT ILLNESS: The patient is a very pleasant 48-year-old who has a known history of hypertension. The patient notes she has been having some urinary difficulties with dysuria and frequency. For the last several days she has been taking Pyridium. She has had a headache. She notes that her blood pressure was elevated last night and felt as though her vision was blurry. Her headache was worse this morning, therefore she came to the ER. ALLERGIES: Morphine, codeine and Zofran, all causing itching. MEDICATIONS: Synthroid 50, clonazepam 0.5, Prozac 60, Catapres 0.1 daily. REVIEW OF SYSTEMS: As noted above. Positive headache, blurry vision this morning. She has been having urinary frequency, urgency, hesitancy. Denies any polyuria or polydipsia. Denies any hematuria. Denies diarrhea, constipation, melena or hematochezia. Denies fevers or chills. Denies focalized numbness, tingling or weakness in her extremities. Denies any edema. Denies chest pain, palpitations or shortness of breath. PAST MEDICAL HISTORY: Significant for hypertension, depression, asthma, reflux, chronic peptic ulcer disease. She has been told she had a stroke in the past, has migraines. FAMILY HISTORY: Noncontributory. Does have family history of hypertension. SOCIAL HISTORY: The patient denies smoking, does not drink or use illicit substances. PHYSICAL EXAMINATION: VITAL SIGNS: Reviewed. Blood pressure initially 213/127, currently 155/105. She is afebrile with temperature of 98 degrees, pulse 67, respiratory 20. GENERAL: The patient is awake, alert. She is very pleasant. No respiratory distress. HEENT: Normocephalic. NECK: Supple. CARDIOVASCULAR: Regular rate. No murmurs. CHEST: Clear, nonlabored. ABDOMEN: Soft, nondistended, nontender. EXTREMITIES: Moves all extremities. NEUROLOGIC: No focal neurological changes. SKIN: Warm and dry. No rashes. LABORATORY DATA: CBC and CMP effectively normal. Urinalysis with positive nitrite. ASSESSMENT: 1. Urinary tract infection. 2. Headache. 3. Hypertension. 4. Chronic depression. 5. Others. PLAN: We are going to admit the patient to the hospital. Continue to treat her blood pressure. Place her on Rocephin for presumed urinary tract infection, and will follow. cc: Sheng Shi MD
[2019-04-18] MEDS: TYLENOL PO PRN (04:42)
[2019-04-18 06:36] LABS: BASO# 0.04 X1000 (0.0-0.2); BASO% 0.5 % (0.0-0.8); EOS# 0.21 X1000 (0.0-0.7); EOS% 2.5 % (0.0-10.0); HEMATOCRIT 35.6 % (37.0-47.0); HEMOGLOBIN 11.3 g/dL (12.0-16.0); IMM GRAN# 0.01 X1000 (0.0-0.04); IMM GRAN% 0.1 % (0.0-0.5); LYMPH# 1.85 X1000 (1.2-3.4); LYMPH% 21.8 % (20.5-51.1); MCH 27.7 PG (27-31); MCHC 31.7 g/dL (33-37); MCV 87.3 FL (81-99); MONO# 0.44 X1000 (0.11-0.59); MONO% 5.2 % (1.7-9.3); MPV 11.5 FL (7.4-10.4); NEUT# 5.93 X1000 (1.4-6.5); NEUT% 69.9 % (42.2-75.2); PLT 278 X1000 (130-400); RBC 4.08 XMIL (4.2-5.4); RDW 14.9 % (11.5-14.5); WBC 8.48 X1000 (4.8-10.8)
[2019-04-18] MEDS ORDERED: SYNTHROID PO SCH (07:00)
[2019-04-18 07:17] LABS: AGAP 10; ALBUMIN 3.8 g/dL (3.5-5.0); ALKALINE PHOSPHATASE 58 U/L (32-104); BUN 8 mg/dL (8-22); CALCIUM 8.7 mg/dL (8.8-10.2); CHLORIDE 108 mmol/L (98-107); COSMO 274; CREATININE 0.5 mg/dL (0.5-0.9); ESTIMATED GFR > 60; GLUCOSE 105 mg/dL (70-104); GOT 20 U/L (10-30); GPT 25 U/L (10-36); POTASSIUM 3.9 mmol/L (3.5-5.1); SODIUM 138 mmol/L (136-145); TCO2 20 mmol/L (25-35); TOTAL BILIRUBIN < 0.15 mg/dL (0.20-1.00); TOTAL PROTEIN 6.6 g/dL (6.3-8.3)
[2019-04-18 08:33] VITALS: BP 145/80
[2019-04-18] MEDS: LOPRESSOR PO SCH (08:49)
[2019-04-18] MEDS: NS 1,000 ML IV SCH (08:49)
[2019-04-18] MEDS: KLONOPIN PO SCH (08:50)
[2019-04-18] MEDS ORDERED: PROZAC PO SCH (09:00)
[2019-04-18] MEDS ORDERED: CATAPRES PO SCH (09:00)
[2019-04-18] MEDS ORDERED: LEVAQUIN 500 MG/D5W 500 MG/100 ML IVPB IV SCH (16:00)
--- NOTE | 2019-04-18 16:51 | DISCHARGE SUMMARY ---
ADMISSION DATE: 04/17/2019 DISCHARGE DATE: 04/18/2019 DISCHARGE DIAGNOSES: 1. Malignant hypertension, resolved. 2. Urinary tract infection. 3. Headache secondary to hypertension and urinary tract infection, resolved. 4. Chronic depression. CONSULTATIONS: None. PROCEDURES: None. BRIEF HOSPITAL COURSE: The patient is a 48-year-old female who presented to the hospital with headache and generalized malaise. She was noted to have a urinary tract infection, as well as malignant hypertension. She was given medications while in the ER, which did not improve her blood pressure. She, therefore, was admitted to the hospital. After treating her UTI and placing her on fluids, both her headache and blood pressure improved. We will discharge her home. We will follow up on her urine culture as an outpatient. No other changes were made. Greater than 30 minutes was spent in total care. Patient will follow up in the office in 1 week to recheck her blood pressure and to follow up on her urinary tract. cc: Sheng Shi MD
== END 2019-04-18 12:07 | disposition home or self-care (01) ==
LOC: P.MEDSURG 11:03 → P.ED 11:03
PROVIDERS: ATTEND Family Medicine